=== PATIENT | female | born 1940 | race African-American/Black ===

== ENCOUNTER 2019-05-26 10:57 | Inpatient (IN) | payer MEDICARE, MEDICAID ==
--- NOTE | 2019-05-26 11:33 | RAD ---
XR Chest 1 View Portable History: Syncope Comparison: Radiograph May 21, 2013 Findings: Heart size is enlarged. Mild tortuosity of the aorta. Old right distal clavicular fracture. No acute osseous abnormality. No focal airspace consolidation, pneumothorax, or effusion. Impression: Chronic findings. No acute intrathoracic abnormality.
[2019-05-26 11:40] LABS: #Lymphocytes 1.2 thou/uL (1.20-3.40); #Monocytes 0.7 thou/uL (0.11-0.59); #Neutrophils 6.8 thou/uL (1.40-6.50); %Basophils 0.2 % (0.0-1.0); %Eosinophils 0.2 % (0.0-10.0); %Lymphocytes 13.3 % (21.0-51.0); %Neutrophils 78.3 % (42.0-75.0); Hemoglobin 10.8 g/dL (12.0-16.0); Mean Corpuscular HGB CONC 31.3 g/dL (32.0-36.0); Mean Corpuscular Hemoglobin 23.7 pg (27.0-31.0); Mean Corpuscular Volume 75.7 fL (78.0-98.0); Mean Platelet Volume 8.8 fL (7.4-10.4); Platelet Count 318 thou/uL (130-400); RBC Distribution Width 13.4 % (11.5-14.5); Red Blood Cell (RBC) Count 4.57 mill/uL (4.20-5.40); White Blood Cell (WBC) Count 8.7 thou/uL (4.8-10.8)
--- NOTE | 2019-05-26 11:45 | CT ---
Head CT without contrast 05/26/2019: COMPARISON: 06/07/2012 HISTORY: Syncope TECHNIQUE: Axial CT imaging at 5 mm intervals from vertex through skull base without contrast FINDINGS: The imaged paranasal sinuses and mastoid air cells are well aerated. There is atherosclerot ic calcification of the distal vertebral arteries, cavernous carotid arteries, and basilar artery. There is encephalomalacia within the left frontal and parietal region consistent with prior left MCA infarction. Stable cerebral volume loss with associated prominence of the CSF containing spaces. No intracranial hemorrhage, midline shift, or mass effect. IMPRESSION: Stable head CT. No intracranial hemorrhage.
[2019-05-26 12:03] LABS: ALT (SGPT) 18 U/L (8-55); AST (SGOT) 36 U/L (5-34); Albumin 3.2 g/dL (3.4-4.8); Alkaline Phosphatase 77 U/L (40-150); Anion Gap 14 mmol/L (10-20); BUN (Urea Nitrogen) 7 mg/dL (9.8-20.1); Bilirubin, Total 0.8 mg/dL (0.2-1.2); Calc. Creatinine Clearance 0 mL/min (70-130); Calcium 9.5 mg/dL (7.8-10.44); Carbon Dioxide 27 mmol/L (23-31); Chloride 100 mmol/L (98-107); Estimated GFR-MDRD 65; Globulin 4.8 g/dL (2.4-3.5); Glucose 109 mg/dL (83-110); Potassium 3.5 mmol/L (3.5-5.1); Sodium 137 mmol/L (136-145)
[2019-05-26 12:09] LABS: Bacteria/HPF 4+ HPF (None Seen); Bilirubin Negative (Negative); Blood, Urine Trace (Negative); Clarity Turbid (Clear); Glucose, Urine (Dipstick) Normal (Negative); Leukocyte 250 Leu/uL (Negative); Nitrite Negative (Negative); Protein, Urine (Dipstick) 50 mg/dL (Neg-Trace); Squamous Epithelial 0-3 HPF (0-3); Urobilinogen 6 mg/dL (Less than 2); WBC/HPF Greater than 50 HPF (0-3)
[2019-05-26] MEDS ORDERED: cefTRIAXone\\ROCEPHIN 1 GM VIAL ONE (12:26)
[2019-05-26 12:31] LABS: CKMB 14.3 ng/mL (0-6.6)
[2019-05-26 15:47] LABS: Troponin I 0.224 ng/mL (< 0.028)
[2019-05-26] MEDS ORDERED: Nitroglycerin 0.4 MG TAB (25 Tab Bottle) SL PRN (17:59)
[2019-05-26] MEDS ORDERED: Ondansetron ODT 4 MG TAB PO PRN (17:59)
[2019-05-26] MEDS ORDERED: Bisacodyl 5 MG TAB PO PRN (17:59)
[2019-05-26] MEDS ORDERED: Acetaminophen 500 MG TAB PO PRN (17:59)
[2019-05-26] MEDS ORDERED: Ondansetron PF 4 MG/2 ML Vial IVP PRN (17:59)
--- NOTE | 2019-05-26 19:43 | ULT ---
EXAM: BILATERAL CAROTID DUPLEX ULTRASOUND INCLUDING COLOR AND SPECTRAL DOPPLER IMAGIN05/26/19 HISTORY: Syncope. There is some visual plaque and intimal thickening noted bilaterally involving the CCAs and ICAs. PSV right ICA 32 cm/s. EDV 11 cm/s. ICA/CCA ratio 0.5. PSV left ICA 45 cm/s. EDV 11 cm/s. ICA/CCA ratio 0.6. Vertebral flow is antegrade. IMPRESSION: Bilateral intimal thickening and plaque evidence for bilateral carotid artery vascular disease. No he modynamically significant stenosis. POS: MAGGIE
[2019-05-26] MEDS: Pravastatin Sodium 20 MG TAB PO SCH (20:25)
[2019-05-26] MEDS ORDERED: Apixaban 2.5 MG TAB PO SCH (21:00)
[2019-05-27] MEDS: cefTRIAXone\\ROCEPHIN 2 GM in Sodium Chloride 0.9% 100 ML IVPB SCH (00:37)
[2019-05-27 05:31] LABS: #Eosinphils 0.1 thou/uL (0.0-0.7); #Lymphocytes 1.1 thou/uL (1.20-3.40); #Monocytes 0.5 thou/uL (0.11-0.59); #Neutrophils 3.3 thou/uL (1.40-6.50); %Basophils 0.2 % (0.0-1.0); %Eosinophils 1.2 % (0.0-10.0); %Lymphocytes 23.1 % (21.0-51.0); %Monocytes 9.1 % (0.0-10.0); %Neutrophils 66.4 % (42.0-75.0); Hemoglobin 9.6 g/dL (12.0-16.0); Mean Corpuscular HGB CONC 31.5 g/dL (32.0-36.0); Mean Corpuscular Hemoglobin 23.7 pg (27.0-31.0); Mean Corpuscular Volume 75.2 fL (78.0-98.0); Mean Platelet Volume 9.6 fL (7.4-10.4); Platelet Count 293 thou/uL (130-400); RBC Distribution Width 13.7 % (11.5-14.5); Red Blood Cell (RBC) Count 4.07 mill/uL (4.20-5.40); White Blood Cell (WBC) Count 4.9 thou/uL (4.8-10.8)
[2019-05-27 05:51] LABS: ALT (SGPT) 13 U/L (8-55); AST (SGOT) 24 U/L (5-34); Albumin 2.6 g/dL (3.4-4.8); Alkaline Phosphatase 62 U/L (40-150); Anion Gap 12 mmol/L (10-20); BUN (Urea Nitrogen) 10 mg/dL (9.8-20.1); Bilirubin, Total 0.3 mg/dL (0.2-1.2); Calc. Creatinine Clearance 61 mL/min (70-130); Calcium 8.6 mg/dL (7.8-10.44); Carbon Dioxide 26 mmol/L (23-31); Chloride 102 mmol/L (98-107); Estimated GFR-MDRD 78; Globulin 4.1 g/dL (2.4-3.5); Glucose 100 mg/dL (83-110); Protein, Total 6.7 g/dL (6.0-8.3); Sodium 137 mmol/L (136-145)
[2019-05-27 06:05] LABS: Free T4 (Free Thyroxine) 0.98 ng/dL (0.70-1.48); Thyroid Stimulating Hormone 1.4276 uIU/mL (0.35-4.94)
[2019-05-27] MEDS ORDERED: Potassium Chloride 40 MEQ in Premix Bag 1 BAG IVPB SCH ×2 (07:15→19:00)
[2019-05-27 07:37] LABS: Actual Bicarbonate (HCO3a) 23.1 mEq/L (22-28); Analyzer IN Cardio OR; Base Excess (BEa) -1.4 mEq/L (-2.0 to +3.0); CO2 Tension 38.1 mmHg (35.0-45.0); Calcium, Ionized 1.09 mmol/L (1.12-1.30); O2 Tension (PaO2) 101.2 mmHg (> 70.0); Potassium - ABG Lab 3.55 mmol/L (3.70-5.30)
[2019-05-27 07:38] LABS: ALV-art Gradient 0.905 (0-20); Puncture Site LB
[2019-05-27] MEDS ORDERED: Magnesium Sulfate 2 GM in Sodium Chloride 0.9% 100 ML IVPB SCH (07:45)
[2019-05-27] MEDS ORDERED: Magnesium 2 GM/50 ML 2 GM in Premix Bag 1 BAG IVPB SCH (07:45)
[2019-05-27 07:49] LABS: ALT (SGPT) 21 U/L (8-55); AST (SGOT) 45 U/L (5-34); Albumin 2.3 g/dL (3.4-4.8); Alkaline Phosphatase 61 U/L (40-150); Anion Gap 13 mmol/L (10-20); BUN (Urea Nitrogen) 10 mg/dL (9.8-20.1); Bilirubin, Total 0.3 mg/dL (0.2-1.2); Calc. Creatinine Clearance 57 mL/min (70-130); Calcium 8.5 mg/dL (7.8-10.44); Carbon Dioxide 22 mmol/L (23-31); Chloride 105 mmol/L (98-107); Estimated GFR-MDRD 72; Globulin 3.5 g/dL (2.4-3.5); Glucose 123 mg/dL (83-110); Phosphorus 3.5 mg/dL (2.3-4.7); Potassium 3.1 mmol/L (3.5-5.1); Protein, Total 5.8 g/dL (6.0-8.3); Sodium 137 mmol/L (136-145)
[2019-05-27] MEDS ORDERED: Diltiazem 125 MG in Sodium Chloride 0.9% 100 ML IVPB SCH (08:00)
--- NOTE | 2019-05-27 08:00 | PDOC.EVN ---
Event Note - Event Note Event Note: Called to a code blue for Ms. Finney at ~0630. She was admitted for syncope. Upon entering the room a backboard was being placed and compressions started. She underwent several rounds of CPR, which included two rounds of epi, two shocks, and one amp of bicarb, followed by ROSC. We obtained a stat ABG and stat labs. Pt was oxygenating and ventilation fine and obtained rosc before requiring intubation. Labs showed a low potassium, which we replaced. EKG showed a RBBB, and the one from admission showed t wave inversions and pt had elevated troponins. After transfer to the ICU we started her on ther lovenox, consulted pulm and cardiology. Once reaching the ICU, recheck on vitals showed a heart rate in the 150s and bp 70/40 with map of 50s, saturating well on a face mask. PCP notified.
--- NOTE | 2019-05-27 08:02 | RAD ---
EXAM: Portable chest PROVIDED CLINICAL HISTORY: Shortness of breath COMPARISON: 05/26/2019 FINDINGS: Cardiac and mediastinal silhouette is unchanged in appearance. Increased density is seen at the left lung apex suggesting developing pneumonia versus overlying artifact. Blunting of left costophrenic angle may reflect pleural fluid. No evidence for pneumothorax. IMPRESSION: Question left apical airspace disease. Correlate for pneumonia. Follow-up PA and lateral views of the chest are recommended.
[2019-05-27] MEDS ORDERED: Fentanyl 100 MCG/2 ML VIAL ONE (08:06)
[2019-05-27 08:10] LABS: CKMB 5.2 ng/mL (0-6.6)
[2019-05-27] MEDS ORDERED: Sodium Bicarb 50 MEQ/50 ML Abboject 8.4% SYRINGE ONE (08:21)
[2019-05-27] MEDS ORDERED: Calcium Chloride 1 GM/10 ML Abboject SYRINGE ONE (08:21)
[2019-05-27] MEDS ORDERED: EPINEPHrine 1 MG/10 ML Abboject SYRINGE ONE (08:21)
[2019-05-27] MEDS ORDERED: Amiodarone 150 MG in Dextrose 5% in Water 100 ML IVPB SCH (08:30)
[2019-05-27] MEDS: Amiodarone 450 MG in Dextrose 5% in Water 250 ML IVPB SCH (08:59)
[2019-05-27] MEDS ORDERED: Thiamine 100 MG TAB PO SCH (09:00)
[2019-05-27] MEDS ORDERED: Potassium Chloride 10 MEQ TAB PO SCH (09:00)
[2019-05-27] MEDS ORDERED: Folic Acid 1 MG TAB PO SCH (09:00)
[2019-05-27] MEDS ORDERED: Furosemide 40 MG TAB PO SCH (09:00)
[2019-05-27] MEDS: Enoxaparin Sodium 80 MG/0.8 ML SYRINGE SC SCH ×2 (09:04→21:03)
[2019-05-27 09:07] LABS: #Eosinphils 0.1 thou/uL (0.0-0.7); #Monocytes 0.6 thou/uL (0.11-0.59); #Neutrophils 13.7 thou/uL (1.40-6.50); %Basophils 0.1 % (0.0-1.0); %Eosinophils 0.4 % (0.0-10.0); %Lymphocytes 12.5 % (21.0-51.0); %Monocytes 3.4 % (0.0-10.0); %Neutrophils 83.7 % (42.0-75.0); Hemoglobin 9.5 g/dL (12.0-16.0); Mean Corpuscular HGB CONC 30.2 g/dL (32.0-36.0); Mean Corpuscular Hemoglobin 23.5 pg (27.0-31.0); Mean Corpuscular Volume 77.6 fL (78.0-98.0); Mean Platelet Volume 8.9 fL (7.4-10.4); Platelet Count 256 thou/uL (130-400); RBC Distribution Width 13.5 % (11.5-14.5); Red Blood Cell (RBC) Count 4.06 mill/uL (4.20-5.40); White Blood Cell (WBC) Count 16.4 thou/uL (4.8-10.8)
[2019-05-27] MEDS ORDERED: Norepinephrine 8 MG in Sodium Chloride 0.9% 250 ML 250 ML IVPB PRN (09:46)
[2019-05-27] MEDS ORDERED: Fentanyl 100 MCG/2 ML VIAL SLOW IVP SCH (10:00)
[2019-05-27] MEDS ORDERED: Enoxaparin Sodium 80 MG/0.8 ML SYRINGE SC SCH (10:00)
--- NOTE | 2019-05-27 10:22 | PRG ---
DATE OF SERVICE: 05/27/2019 HISTORY OF PRESENT STAY: I was notified by [place] [facility] and Resident Team that the patient coded on the floor with tachyarrhythmia, had several rounds of chest compressions, epinephrine, and returned from [facility] into tachyarrhythmia. Dr. Church evaluated the patient, felt like some of this was related to atrial fibrillation with RVR. Some elements were consistent with V-tach. The patient was initiated on Cardizem and then had further synchronized shock that did not successfully break the patient's rhythm. Started on the amiodarone with decreased rate down to 120s. The patient was transferred to the ICU. Did have a bump in white blood cell count following the stress event. Troponin actually trended down from yesterday indeterminant last of 0.17. Potassium found to be low pending replacement currently. Magnesium was 2.0. Thyroid studies normal. Did have family conversation with multiple family members including a primary caregiver of son-in-law and power of director furniture, the patient's son. He stated that she should be full code at this point in time. Verbalized understanding that the patient's prognosis is poor. The patient is breathing on own with nonrebreather currently. Does have extremely low blood pressure, last documented of 62/45. Confirmed with the patient's family that Eliquis was for strokes not for atrial fibrillation. The patient has not seen a pencil maker in multiple years since her prior stroke evaluations back in 2011. In reviewing this morning's chest x-ray post code, apical airspace, which may be early aspiration pneumonia during a code event versus volume overload. The patient received two 3 L of normal saline during code. Traditionally on Lasix and potassium chloride replacement outpatient. Oxygen saturation currently 100% on nonrebreather and 16 respirations. Blood cultures currently negative. Urine culture with gram negative rods, identification susceptibilities are pending. Carotid Dopplers did come back with no severe stenosis, but disease present. Echo has not been performed yet. PHYSICAL EXAMINATION: GENERAL: The patient is not fully responding by the eyes open. Able to move left arm. Right arm is at baseline, right hemiparesis. Nonrebreather in place. HEENT: Cataracts present, but pupils responding to light equally. HEART: Tachycardia. No murmurs auscultated. LUNGS: Coarse breath sounds bilaterally. ABDOMEN: Soft and nontender. EXTREMITIES: Lower extremities without cyanosis or edema. Unable to assess orientation. ASSESSMENT AND PLAN: Status post code episode for tachyarrhythmia, likely secondary to sepsis from UTI. Following Cardiology's recommendations, currently placed on amiodarone drip. Eliquis was discontinued. Currently, on therapeutic Lovenox. Continued on Rocephin at this point in time. We will seek a Critical Care's considerations for further antibiotic changes to broad-spectrum. During family discussion, they still currently wish the patient to be full code. We will continue to have discussions as the patient's condition either deteriorates or stabilizes. Prognosis is grim. Job ID: [id number]
[2019-05-27 15:16] LABS: Potassium 3.4 mmol/L (3.5-5.1)
--- NOTE | 2019-05-27 15:16 | CON ---
DATE OF CONSULTATION: 05/27/2019 REASON FOR CONSULTATION: Syncopal episode, atrial fibrillation, cardiac arrest, and hypotension. HISTORY OF PRESENT ILLNESS: Ms. Finney is a very pleasant 79-year-old female, who was brought to the hospital yesterday with a syncopal episode. The patient was admitted for observation and she was noted to have a decubitus ulcer. She was started on antibiotics. The patient developed atrial fibrillation with a rapid ventricular response and rapidly deteriorated. From the reports I am getting, she also had ventricular fibrillation which required defibrillation. The patient was moved to the intensive care unit, where she had a heart rate of 160, atrial fibrillation with a blood pressure of 70 systolic to 60 systolic. PAST MEDICAL HISTORY: 1. Previous stroke. 2. The patient is on Eliquis for unknown reason, suspect may have been atrial fibrillation. 3. As mentioned, she was found to have a decubitus ulcer on this occasion. REVIEW OF SYSTEMS: Not obtainable. The patient has a previous stroke, and is unable to verbalize adequately in terms of any review of systems. ALLERGIES: TO LISINOPRIL. SOCIAL HISTORY: She has a family member with her, we asked to go out to the waiting room because we had to cardiovert the patient as I outlined below. PHYSICAL EXAMINATION: GENERAL: This is a critically ill-appearing patient. HEENT: Blood pressure is initially in the 60s, systolic. Pulse is 160. HEENT: Eyes, sclerae are nonicteric. Mouth, mucous membranes are moist. NECK: Supple. LUNGS: Extremely tachycardic. I do not appreciate a murmur, rub, or gallop. LUNGS: Clear anteriorly and laterally, but taking shallow breaths. ABDOMEN: Soft and nontender. EXTREMITIES: No edema. NEUROLOGIC: She has right-sided loss of function in the right upper extremity. The patient also has expressive aphasia. DIAGNOSTIC DATA: EKG did reveal atrial fibrillation with a very rapid ventricular response. Previous EKG showed some T-wave changes, probably ischemia. ASSESSMENT: 1. Atrial fibrillation with rapid ventricular response with hypotension. 2. Cardiac arrest. By report, she had ventricular fibrillation as well. There certainly are some episodes here of torsade and actually looking at the strip, there is ventricular fibrillation, which was cardioverted. 3. Hypokalemia. 4. Previous stroke. PLAN: 1. She is given one dose of Cardizem. Initially, we were going to give 10 mg and 5 mg. Her rate did not come down and her blood pressure was still very low, so she only got 5 mg. 2. The patient was cardioverted. We gave 200 joules of direct current energy in view of the hypotension, she did convert to sinus rhythm for less than a minute, then back in atrial fibrillation with a rapid rate. 3. We started intravenous amiodarone, this helped controlling the rate. Her rate is now 120 instead of 160. 4. She is receiving fluid. 5. Pulmonary will be following as well. 6. Replace potassium. 7. Prognosis is guarded. I will just further discuss with the family members. Job ID: [id number]
[2019-05-27] MEDS: Pravastatin Sodium 20 MG TAB PO SCH (21:02)
[2019-05-27] MEDS: Pantoprazole 40 MG VIAL IVP SCH (21:03)
[2019-05-28] MEDS: cefTRIAXone\\ROCEPHIN 2 GM in Sodium Chloride 0.9% 100 ML IVPB SCH ×2 (00:09→23:44)
--- NOTE | 2019-05-28 02:13 | CON ---
DATE OF CONSULTATION: 05/27/2019 HISTORY OF PRESENT ILLNESS: Angy Finney is a 79-year-old female who had a ventricular tachycardia arrest this morning, requiring cardioversion. She was successfully cardioverted without intubation. She had been admitted for syncope. She was in rapid atrial fibrillation after she coded and was cardioverted out of atrial fibrillation and went back into atrial fibrillation. PAST MEDICAL HISTORY: Remarkable for stroke in the past. Reviewing old records , it does not appear that she has been in the hospital since 2012. At that time, she was admitted with angioedema. PAST MEDICAL HISTORY: Includes hypertension, lipid disorder, CVA and a seizure disorder. FAMILY HISTORY: Negative for lung disease in early age. PAST SURGICAL HISTORY: Remarkable for cholecystectomy. SOCIAL HISTORY: She is a nonsmoker, nondrinker, nondrug user. ALLERGIES: NO DRUG ALLERGIES. REVIEW OF SYSTEMS: Ten points review of systems completed is negative. PHYSICAL EXAMINATION: GENERAL: Angy Finney is a 79-year-old female VITAL SIGNS: Blood pressure is 143/66, heart rate 83, respiratory rate is 18, oximetry is 100%. HEENT: Pupils are equal. Sclerae are anicteric. NECK: Supple. LUNGS: Clear. HEART: Regular rhythm, rapid rate. ABDOMEN: Soft and nontender. EXTREMITIES: Without clubbing, cyanosis, or edema. IMPRESSION: 1. Atrial fibrillation. 2. Status post ventricular tachycardia arrest. 3. Syncope, likely related to ventricular tachycardia that spontaneously converted. 4. Rapid atrial fibrillation. 5. History of cerebrovascular accident. 6. Hypertension. 7. History of lipid disorder. 8. We will follow the other physicians. She is doing well protecting her airway at this time and when evaluated by me, she had no respiratory distress. Blood gas this morning showed a pH of 7.4, CO2 is 38, and pO2 of 101. TIME SPENT WITH PATIENT: This is a 70 minute consult, with greater than 50% of time spent on the unit coordinating care. Job ID: [id number] MTDD
[2019-05-28] MEDS: Amiodarone 450 MG in Dextrose 5% in Water 250 ML IVPB SCH ×2 (04:57→19:35)
[2019-05-28 04:58] LABS: #Lymphocytes 1.5 thou/uL (1.20-3.40); #Monocytes 0.5 thou/uL (0.11-0.59); #Neutrophils 4.4 thou/uL (1.40-6.50); %Basophils 0.4 % (0.0-1.0); %Eosinophils 0.5 % (0.0-10.0); %Lymphocytes 22.5 % (21.0-51.0); %Monocytes 7.4 % (0.0-10.0); %Neutrophils 69.2 % (42.0-75.0); Hemoglobin 8.7 g/dL (12.0-16.0); Mean Corpuscular HGB CONC 31.1 g/dL (32.0-36.0); Mean Corpuscular Hemoglobin 23.9 pg (27.0-31.0); Mean Corpuscular Volume 76.9 fL (78.0-98.0); Mean Platelet Volume 9.5 fL (7.4-10.4); Platelet Count 287 thou/uL (130-400); RBC Distribution Width 13.7 % (11.5-14.5); Red Blood Cell (RBC) Count 3.65 mill/uL (4.20-5.40); White Blood Cell (WBC) Count 6.4 thou/uL (4.8-10.8)
[2019-05-28 05:16] LABS: ALT (SGPT) 19 U/L (8-55); AST (SGOT) 36 U/L (5-34); Albumin 2.4 g/dL (3.4-4.8); Alkaline Phosphatase 58 U/L (40-150); Anion Gap 12 mmol/L (10-20); BUN (Urea Nitrogen) 10 mg/dL (9.8-20.1); Bilirubin, Total 0.2 mg/dL (0.2-1.2); Calc. Creatinine Clearance 56 mL/min (70-130); Calcium 8.5 mg/dL (7.8-10.44); Carbon Dioxide 23 mmol/L (23-31); Chloride 106 mmol/L (98-107); Estimated GFR-MDRD 71; Globulin 3.8 g/dL (2.4-3.5); Glucose 97 mg/dL (83-110); Potassium 3.6 mmol/L (3.5-5.1); Protein, Total 6.2 g/dL (6.0-8.3); Sodium 137 mmol/L (136-145)
[2019-05-28] MEDS ORDERED: Potassium Chloride 40 MEQ in Premix Bag 1 BAG IVPB SCH (08:45)
--- NOTE | 2019-05-28 09:04 | PRG ---
DATE OF SERVICE: 05/28/2019 SUBJECTIVE: Ms. Finney looks much better today. She is much more alert. She is oriented x1. She does not know where she is. She thinks she is in home. She does not know the year. OBJECTIVE: VITAL SIGNS: Her blood pressure is 120 systolic, which is markedly improved. She is off Levophed. No chest pain. LUNGS: Clear. CARDIAC: Normal S1 and normal S2. ABDOMEN: Soft and nontender. EXTREMITIES: There is no edema. She has good femoral pulses bilaterally. She has a venous central line in the right femoral vein. LABORATORY DATA: Echocardiogram showed that she does have a previous infarct. The mid and distal anterior wall are akinetic. The mid and distal septum are akinetic. Inferior wall is akinetic. Ejection fraction 30% to 35%. ASSESSMENT: 1. Recurrent cardiac arrest with torsades and ventricular fibrillation. 2. Probably multivessel coronary artery disease. 3. Dementia. 4. Previous stroke. 5. The patient is able to follow directions, but as mentioned, does not know where she is. PLAN: 1. Continue amiodarone. 2. Continue to replete potassium. 3. Eventually consider cardiac catheterization, although would not be a surgical candidate in all likelihood with her previous stroke and other problems. Long-term prognosis is guarded in this very pleasant patient. We will discuss with the family. 4. Increase statin intensity. 5. She has also iron deficient anemia with low ferritin and iron. We will replete iron. Job ID: [id number]
[2019-05-28] MEDS: Enoxaparin Sodium 80 MG/0.8 ML SYRINGE SC SCH ×2 (09:20→20:10)
[2019-05-28] MEDS: Pantoprazole 40 MG VIAL IVP SCH ×2 (09:56→20:09)
[2019-05-28] MEDS: Iron, Sodium Ferric Gluconate 250 MG in Sodium Chloride 0.9% 100 ML IVPB SCH ×2 (09:57→20:10)
[2019-05-28] MEDS ORDERED: Amiodarone 150 MG/3 ML VIAL ONE (18:00)
--- NOTE | 2019-05-28 19:09 | PRG ---
DATE OF SERVICE: 05/28/2019 SUBJECTIVE: Ms. Angy Finney has had no further dysrhythmias. OBJECTIVE: VITAL SIGNS: Blood pressure 129/86, heart rate 88, respiratory rate 24. Intake and outputs, positive 4347. LUNGS: Clear. HEART: Regular rhythm, S1 and S2 are normal. ABDOMEN: Soft. EXTREMITIES: Without edema. LABORATORY DATA: White count 6.4, hemoglobin 8.7, platelets 287. Electrolytes are normal. IMPRESSION: Status post ventricular tachycardia arrest, clinically stable. Echocardiogram shows an ejection fraction of 30% to 35%. We will continue supportive care in the critical care unit. Cardiology is following. Job ID: [id number]
[2019-05-28] MEDS: Atorvastatin Calcium 40 MG TAB PO SCH (20:10)
--- NOTE | 2019-05-28 21:34 | HP ---
PRIMARY CARE PHYSICIAN: Apolinar Molina DO CHIEF COMPLAINT: Syncopal episode. HISTORY OF PRESENT ILLNESS: Family members witnessed a syncopal episode, brought the patient to the emergency department. She has had a longstanding history of multiple strokes with right-sided hemiplegia and some vascular dementia. The patient's speech and prior deficits appeared at baseline per family following the syncopal episode. The patient has a longstanding history of alcohol abuse. Currently off ETOH but has replaced it with sodas, has not had a cardiac workup in [facility] for several years, noticed to have elevated troponin in the emergency department, admitted for likely UTI, given Rocephin and did trend troponins. The patient is talking at bedside. No family is at bedside. Unable to make sense of what the patient is saying, given her baseline dementia. Unable to review review of symptoms or further HPI. At the time of exam, vital signs on admission to the floor, temperature of 99.1, pulse of 95, respiratory rate of 16 , oxygen saturation 100% on room air, blood pressure of 131/75. Laboratory work wbc 8.7, hemoglobin of 10.8, platelet count of 318. Sodium 137, potassium of 3.5, creatinine of 1.0, glucose 109, AST of 36, ALT of 17, albumin of 3.2. Troponins x3 0.15, 0.22, and 0.24. BNP of 572. Urinalysis, specific gravity of 1.01. Positive leukocyte esterase, positive blood, positive wbc's, no squamous cells. Chest x-ray without acute cardiopulmonary events. Brain CT, no intracranial hemorrhage, encephalomalacia present consistent with prior left-sided MCA infarct. MEDICATIONS: The patient's home medications listed as; 1. Pravastatin 20 mg. 2. Potassium chloride 10 mEq daily. 3. Hydrochlorothiazide 25 daily. 4. Lasix 40 mg daily. 5. Eliquis 2.5 mg p.o. b.i.d. PAST MEDICAL/SOCIAL/SURGICAL HISTORY: Cholecystectomy, dementia, history of trigeminal neuralgia, history of alcohol abuse, hypertension. FAMILY HISTORY: Type 2 diabetes, hypertension with sister. SOCIAL HISTORY: The patient currently living at home with home health being ordered this past month. ALLERGIES: INCLUDE LISINOPRIL, PRIOR REPORTS OF ANGIOEDEMA AND PROCHLORPERAZINE. PHYSICAL EXAMINATION: GENERAL: The patient is alert, but not making any sense, repeats herself. The facial droop is reported at baseline per emergency room notes. HEENT: Otherwise, head is normocephalic, atraumatic. Oral mucosa is moist, extremely poor dentition present. HEART: Regular rate, however, has several PVCs during exam, otherwise normal rhythm. LUNGS: Clear to auscultation bilaterally. No rubs or wheezes. ABDOMEN: Soft, nontender. Positive bowel sounds throughout. EXTREMITIES: Lower extremities without cyanosis or edema. Right upper extremity, unable to produce recruiter account manager or to respond to command against gravity. Left arm and lower extremity moving on command, squeezes and senior net software developer well but still unable to fully understand the patient with some underlying baseline speech slurring, which is per ER report at baseline. ASSESSMENT AND PLAN: Syncopal episode, urinary tract infection, baseline dementia, and right hemiparesis with speech slur and facial droop, deconditioning, decubitus bedsore to buttock, caused by pressure, present on admission. Consulting wound care. Continuing Rocephin from admission. Trending troponins. Continuing patient's Eliquis, statin. Covering Cardiology for opinion for any additional medication changes given age and mental condition, likely not a good candidate for any invasive measures. We will consult Physical Therapy to assess the patient's mobility and ability to return home on home health. Given the history of alcohol abuse, we will check thiamine, folic acid, and thyroid studies. In case the patient is , we will reassess in the morning or during the daytime tomorrow. See if the patient's family is at bedside to reaffirm that the patient's deficits are at baseline. Follow up on echo and carotid artery ultrasound for any critical values. We will continue Lasix given patient's elevated BNP and echo for status of any systolic or diastolic dysfunction. We will trend troponin through the morning, remains indeterminate, but stable, likely elevated secondary to stress and strain of urinary tract infection. Job ID: [id number] [facility]
--- NOTE | 2019-05-28 22:14 | PRG ---
DATE OF SERVICE: 05/28/2019 SUBJECTIVE: Given that the patient's blood pressure has rebounded well, no pressors yesterday and heart rate has stabilized, the patient's mentation has much improved this morning. The patient was tolerating diet, verbalized understanding giving her current condition and no acute complaints at bedside. OBJECTIVE: VITAL SIGNS: Heart rate of 97, blood pressure of 129/81, respiratory rate of 29, 95% on room air. GENERAL: The patient is alert and oriented to person and place. HEENT: Head is normocephalic and atraumatic. Pupils are equal, round, reactive, and accommodate to light. Poor dentition remains. Otherwise, oral mucosa is moist. NECK: Supple. HEART: At time of exam is regular rate and rhythm. Coarse breath sounds bilaterally. ABDOMEN: Soft, nontender. EXTREMITIES: Right upper extremity, nonmobile at baseline. Trace edema, lower extremities. LABORATORY DATA: Hemoglobin 8.7, MCV of 76, potassium of 3.6. Sodium of 137, creatinine of 0.9. Microbiology shows E coli, pansensitive except intermediate to Macrobid. ASSESSMENT AND PLAN: Status post cardiac arrest secondary to ventricular tachycardia arrhythmia, some underpinnings of atrial fibrillation on rhythm strips. However, the patient remains rate and rhythm controlled on amiodarone drip. Prior syncopal episode, likely secondary to rhythm changes. Echo shows systolic heart failure, most of this precipitated acutely by urinary tract infection secondary to Escherichia coli, treated with Rocephin. The patient's hypokalemia has been repleted this afternoon. The patient is started on iron for iron deficiency anemia by Cardiology to help support cardiac health. The patient remains in ICU at this point in time with supportive care. Decubitus ulcer is present and the patient is deconditioned. Job ID: [id number]
[2019-05-29 05:36] LABS: #Basophils 0.1 thou/uL (0.0-0.2); #Lymphocytes 1.5 thou/uL (1.20-3.40); #Monocytes 0.4 thou/uL (0.11-0.59); #Neutrophils 6.5 thou/uL (1.40-6.50); %Basophils 0.7 % (0.0-1.0); %Eosinophils 0.3 % (0.0-10.0); %Lymphocytes 17.7 % (21.0-51.0); %Monocytes 5.1 % (0.0-10.0); %Neutrophils 76.2 % (42.0-75.0); Mean Corpuscular HGB CONC 31.4 g/dL (32.0-36.0); Mean Corpuscular Volume 76.3 fL (78.0-98.0); Mean Platelet Volume 9.6 fL (7.4-10.4); Platelet Count 292 thou/uL (130-400); RBC Distribution Width 13.9 % (11.5-14.5); Red Blood Cell (RBC) Count 3.74 mill/uL (4.20-5.40); White Blood Cell (WBC) Count 8.5 thou/uL (4.8-10.8)
[2019-05-29 05:54] LABS: Anion Gap 9 mmol/L (10-20); BUN (Urea Nitrogen) 8 mg/dL (9.8-20.1); Calc. Creatinine Clearance 60 mL/min (70-130); Calcium 8.9 mg/dL (7.8-10.44); Carbon Dioxide 24 mmol/L (23-31); Chloride 106 mmol/L (98-107); Estimated GFR-MDRD 77; Glucose 101 mg/dL (83-110); Potassium 3.9 mmol/L (3.5-5.1); Sodium 135 mmol/L (136-145)
[2019-05-29] MEDS: Enoxaparin Sodium 80 MG/0.8 ML SYRINGE SC SCH ×2 (08:37→21:39)
[2019-05-29] MEDS: Pantoprazole 40 MG VIAL IVP SCH ×2 (08:37→21:39)
--- NOTE | 2019-05-29 09:04 | PRG ---
DATE OF SERVICE: 05/29/2019 SUBJECTIVE: The patient is feeling fine. She denies any chest pain, shortness of breath, or palpitations. Has little recollection of what happened over the weekend with her being coated. States that her appetite is good. She has not been out of bed much, but denies any pain at this time. Her speech is at her baseline. She continues to have right-sided hemiparesis from a past CVA. OBJECTIVE: VITAL SIGNS: Temperature 97.6, pulse of 95, respirations 30, blood pressure 135/95, and pulse ox 100% on room air. GENERAL: She is awake and alert. No acute distress. Speech is at her baseline. NECK: Supple. HEART: Regular rate and rhythm with ectopy. LUNGS: Clear anteriorly. ABDOMEN: Soft. EXTREMITIES: With no edema. Right-sided hemiparesis. NEUROLOGICAL: Back at her baseline. LABORATORY DATA: White blood cell count 8.5, hemoglobin and hematocrit are 9.0 and 28.6, and platelets of 292. Sodium 135, potassium 3.9, chloride 106, CO2 of 24, BUN and creatinine 8 and 0.86 with a serum glucose of 101. Liver enzymes were stable. Albumin from yesterday of 2.4. Urinalysis is abnormal. Urine culture is growing E coli sensitive to ceftriaxone. ASSESSMENT AND PLAN: This is a 79-year-old female with a history of right hemiparesis secondary to past cerebrovascular accident, admitted after syncopal episode and now found to have arrhythmias consistent with tachyarrhythmia, status post Code Blue for ventricular tachycardia, episodes of paroxysms of atrial fibrillation, now seems to be more stable on amiodarone drip. 1. Arrhythmia. Continue amiodarone per Cardiology. Further plans per them. 2. Syncope, likely secondary to arrhythmia. 3. Systolic heart failure, on echocardiogram. Continue appropriate management. 4. Urinary tract infection with Escherichia coli. We will continue IV Rocephin. 5. Hypokalemia, resolved with potassium repletion. Job ID: [id number]
--- NOTE | 2019-05-29 09:45 | PRG ---
DATE OF SERVICE: 05/29/2019 SUBJECTIVE: Ms. Finney has had no recurrence of her ventricular arrhythmias. OBJECTIVE: VITAL SIGNS: She is afebrile. Heart rate is 95, blood pressure 135/94, and oximetry is 100%. LUNGS: Clear. HEART: Regular rhythm. ABDOMEN: Soft. LABORATORY DATA: White count 8.5, hemoglobin 9, platelets 292. Sodium 135, potassium 3.9, chloride 106, bicarb 24, BUN 8, and creatinine 0.86. IMPRESSION: 1. Status post ventricular tachycardia arrest, not requiring intubation. 2. Rapid atrial fibrillation, status post cardioversion. Overall, she appears to be stable at this time. Job ID: [id number]
--- NOTE | 2019-05-29 09:47 | OP ---
DATE OF PROCEDURE: 05/27/2019 PROCEDURE PERFORMED: External cardioversion. INDICATION: Atrial fibrillation with a rapid rate, uncontrolled with severe hypotension. Blood pressure in the 60s, heart rate 160. The patient is hypotensive. She was given 25 mg of fentanyl only, then she got one dose of direct current energy synchronized that did convert her to sinus rhythm for less than a minute. She went back into atrial fibrillation with a rapid rate. ASSESSMENT: Cardioversion emergency initially successful, but then reverted back into atrial fibrillation. Job ID: [id number]
--- NOTE | 2019-05-29 13:00 | PQF ---
DATE: 05-29-19 ATTN: DR. BEAR SANCHEZ Please exercise your independent, professional judgment in responding to the clarification form. Clinical indicators are provided on the bottom of this form for your review Diagnosis: SEPSIS Present on Admission (POA): [x ] Yes [ ] No [ ] Unable to determine Coding guidelines require hospitals to identify whether a diagnosis was present on admission (POA) or not. To accurately assign the appropriate POA indicator, this information must be clearly documented within the medical record. CLINICAL INDICATORS - SIGNS / SYMPTOMS / LABS: PN 05-27-19 DR. SANCHEZ: S/P CODE EPISODE FOR TACHYARRHYTHMIA, LIKELY SECONDARY TO SEPSIS FROM UTI. WBC: 05-27-19: 16.4 TEMP: 05-26-19: 99.1 PULSE: 05-26-19: 107 RISK FACTORS: PN 05-27-19 DR. SANCHEZ: S/P CODE EPISODE FOR TACHYARRHYTHMIA, LIKELY SECONDARY TO SEPSIS FROM UTI. H&P: SYNCOPAL EPISODE, VASCULAR DEMENTIA, ALCOHOL ABUSE, HX TRIGEMINAL NEURALGIA, DECUBITUS BEDSORE TO BUTTOCK CAUSED BY PRESSURE, HTN TREATMENT: ER: ROCEPHIN IV (This form is maintained as a part of the permanent medical record) 2014 [employer] All Rights Reserved DEMOND [email or web address] Office: [phone] BRISA
[2019-05-29] MEDS: Amiodarone 450 MG in Dextrose 5% in Water 250 ML IVPB SCH (14:07)
--- NOTE | 2019-05-29 15:27 | EKG ---
Test Reason : Blood Pressure : / mmHG Vent. Rate : 091 BPM Atrial Rate : 091 BPM P-R Int : 112 ms QRS Dur : 092 ms QT Int : 450 ms P-R-T Axes : 047 027 109 degrees QTc Int : 553 ms Sinus rhythm with Premature supraventricular complexes with occasional Premature ventricular complexe s Prolonged QT Abnormal ECG When compared with ECG of 28-MAY-2019 10:31, (Unconfirmed) Premature ventricular complexes are now Present Premature supraventricular complexes are now Present Nonspecific T wave abnormality no longer evident in Inferior leads Confirmed by CIARA TRUJILLO, DR. Todd ([id number]) on 05/29/2019 3:27:18 PM Referred By: MONICA Confirmed By:DR. Perez URBINA MD
--- NOTE | 2019-05-29 15:28 | PDOC.PALCO ---
Palliative Care Consult - Consult Details Requesting Physician: Dr Mendoza Reason for Consult: goals of care, assistance with communication prognosis/ disease Family Members Present: none - Pertinent HPI At home patient had a witnessed syncopal episode by family and was taken to the emergency room for evaluation. Patient was admitted for further evaluation secondary to UTI, syncope. After admitted patient was evaluated by cardiology, pulmonary. After admission patient had a cardiac event that required resuscitation measures. - Pertinent PMH Dementia, trigeminal neuralgia, hypertension, alcohol abuse, CVA with right sided hemiplegia, systolic heart failure - Social History Smoking Status: Unknown if ever smoked Alcohol Use: daily Living Situation: with family/parents - Medications MAR Reviewed: Yes - Allergies Allergies/Adverse Reactions: Allergies Allergy/AdvReac Type Severity Reaction Status Date / Time lisinopril Allergy Severe Anaphylaxis Verified 05/26/19 15:37 prochlorperazine Allergy Verified 05/26/19 15:37 [From Compazine] - Subjective Patient awake, alert. Only oriented to self. Unable to recall events, the name of her son. ROS; All systems were negative on assessment - Objective Vital Signs: Vital Signs - Most Recent Temp Pulse Resp BP Pulse Ox 97.5 F L 98 16 105/72 100 05/29/19 12:00 05/29/19 08:53 05/27/19 04:00 05/29/19 08:53 05/29/19 08:00 Palliative Performance Scale: 30 - Physical Exam Constitutional: confusion HEENT: moist MMs, EOMI Deviation from normal: Poor dentition Respiratory: unlabored breathing Deviation from normal: mildly coarse breath sounds to upper, and more pronounced to right upper Cardiovascular: RRR, no significant murmur Deviation from normal: Unable to palpate pedal pulses, radial present and equal Gastrointestinal: soft, positive bowel sounds Deviation from normal: Confused, cheerful. Deviation from normal: wound to buttock fair turgor - Problem List (1) Palliative care encounter Code(s): Z51.5 - ENCOUNTER FOR PALLIATIVE CARE Current Visit: Yes Status: Acute (2) Physical deconditioning Code(s): R53.81 - OTHER MALAISE Current Visit: Yes Status: Acute Assessment: muscle wasting atrophy. (3) Dementia Code(s): F03.90 - UNSPECIFIED DEMENTIA WITHOUT BEHAVIORAL DISTURBANCE Current Visit: Yes Status: Acute Qualifiers: Dementia type: vascular dementia Dementia behavioral disturbance: without behavioral disturbance Qualified Code(s): F01.50 - Vascular dementia without behavioral disturbance - Plan/Recommendations Plan: Patient pleasently confused. Vitor Butler RNcareer portals teacher following patient and will follow up with family to establish a family meeting to discuss DNAR status , patient chronic disease processes and disease trajectory and discuss goals of care that are reflective of disease progression to promote optimal care of patient. [60] minutes spent on this encounter with >50% of the time in counseling and coordination of care. Thank you for this very appropriate consult.
--- NOTE | 2019-05-29 16:55 | PRG ---
DATE OF SERVICE: 05/29/2019 SUBJECTIVE: Ms. Finney is much more awake and alert today. She feels better. No chest pain or pressure. OBJECTIVE: VITAL SIGNS: Blood pressure 130/70 and pulse is 80. LUNGS: Clear. CARDIAC: Normal S1 and normal S2. The echocardiogram did show previous anterior infarct with ejection fraction 30% to 35%, inferior akinetic, mid and distal septum akinetic, mid and distal anterior wall akinetic, probably multivessel coronary artery disease. ASSESSMENT: 1. Atrial fibrillation, improved. 2. Ventricular fibrillation, recurrent events. 3. Previous infarcts. 4. Previous stroke. 5. The patient has decubitus ulcer. PLAN: 1. Transition to oral amiodarone. 2. Tentatively plan catheterization on Wednesday if the family wishes to have this done and they understand the significant amount of risk. 3. Okay with me to move to the intermediate care unit. Job ID: [id number]
[2019-05-29] MEDS: Atorvastatin Calcium 40 MG TAB PO SCH (21:42)
[2019-05-29] MEDS: Amiodarone 200 MG TAB PO SCH (21:42)
[2019-05-29] MEDS: cefTRIAXone\\ROCEPHIN 2 GM in Sodium Chloride 0.9% 100 ML IVPB SCH (23:32)
[2019-05-30] MEDS: Amiodarone 450 MG in Dextrose 5% in Water 250 ML IVPB SCH (07:18)
[2019-05-30] MEDS ORDERED: Aspirin 325 mg Enteric Coated Tablet PO SCH (09:00)
--- NOTE | 2019-05-30 09:32 | PRG ---
DATE OF SERVICE: 05/30/2019 SUBJECTIVE: The patient is feeling fine. She denies any chest pain. Denies shortness of breath. She has not had any kind of palpitations. Appetite is good. She has not been out of bed. OBJECTIVE: VITAL SIGNS: Temperature 98.3, pulse is 77, respirations 22 to 25, blood pressure 122/76, pulse ox is 99% to 100% on room air. GENERAL: She is awake and alert. Speech is clear. NECK: Supple. HEART: Regular rate and rhythm with rare ectopy. LUNGS: Clear anteriorly. ABDOMEN: Soft. EXTREMITIES: No edema. Right-sided hemiparesis is her baseline. LABORATORY DATA: Pending this morning. ASSESSMENT AND PLAN: 1. This is a 79-year-old female patient with a history of coronary artery disease, cerebrovascular accident with resultant chronic right hemiparesis, now admitted after syncopal episode and resultant ventricular tachycardia fibrillation arrest and rapid atrial fibrillation, status post cardioversion. She is back in normal sinus rhythm at this time and asymptomatic. Further plan per Dr. Church, for possible cardiac cath, if the patient and family wish to proceed. 2. Atrial fibrillation is resolved. 3. Previous infarcts with history of coronary artery disease. 4. Cardiomyopathy with decreased left ventricular ejection fraction. 5. Deconditioning. Plan Cardiology. Family and patient deciding on whether to proceed with cardiac catheterization tomorrow. We will initiate physical therapy and consult Case Management for likely [facility] facility placement upon discharge. 6. Urinary tract infection. We will continue antibiotics. Job ID: [id number]
[2019-05-30 09:48] LABS: #Eosinphils 0.1 thou/uL (0.0-0.7); #Lymphocytes 1.9 thou/uL (1.20-3.40); #Monocytes 0.4 thou/uL (0.11-0.59); #Neutrophils 4.4 thou/uL (1.40-6.50); %Basophils 0.2 % (0.0-1.0); %Eosinophils 0.8 % (0.0-10.0); %Lymphocytes 27.8 % (21.0-51.0); %Monocytes 5.8 % (0.0-10.0); %Neutrophils 65.3 % (42.0-75.0); Hemoglobin 8.7 g/dL (12.0-16.0); Mean Corpuscular HGB CONC 31.8 g/dL (32.0-36.0); Mean Corpuscular Hemoglobin 24.1 pg (27.0-31.0); Mean Corpuscular Volume 75.5 fL (78.0-98.0); Mean Platelet Volume 9.5 fL (7.4-10.4); Platelet Count 293 thou/uL (130-400); RBC Distribution Width 14.1 % (11.5-14.5); White Blood Cell (WBC) Count 6.8 thou/uL (4.8-10.8)
--- NOTE | 2019-05-30 09:52 | PDOC.PALPN ---
Palliative Progress Note - Subjective Awake, alert with memory recall impairment. Son at bedside. Began discussion in regards to goals of care and resuscitation status. Vitor Butler RNalcohol still operator also visited with patient and son. Son asked for clarification in regards to if patient would have a heart cath, or pacemaker. Vitor Butler has reached out to Dr Church to assist in communication relating to procedures for patient. ROS: Patient denies any complaints, no pertinent complainants at this time. - Objective Vital Signs: Vital Signs - Most Recent Temp Pulse Resp BP Pulse Ox 98.3 F 98 16 105/72 96 05/30/19 04:00 05/29/19 08:53 05/27/19 04:00 05/29/19 08:53 05/29/19 18:51 - Physical Exam Constitutional: confusion HEENT: moist MMs, EOMI Respiratory: unlabored breathing Cardiovascular: RRR Gastrointestinal: soft, non-tender, positive bowel sounds - Assessment (1) Palliative care encounter Code(s): Z51.5 - ENCOUNTER FOR PALLIATIVE CARE Current Visit: Yes Status: Acute (2) Physical deconditioning Code(s): R53.81 - OTHER MALAISE Current Visit: Yes Status: Acute (3) Dementia Code(s): F03.90 - UNSPECIFIED DEMENTIA WITHOUT BEHAVIORAL DISTURBANCE Current Visit: Yes Status: Acute Qualifiers: Dementia type: vascular dementia Dementia behavioral disturbance: without behavioral disturbance Qualified Code(s): F01.50 - Vascular dementia without behavioral disturbance - Plan Plan: *Attempt to assist with communication in regards to potential cardiac procedures and address the complex aspect of decision making with the son. *Discuss DNAR and OOHDNAR status with son after questions are answered/ clarification given in relation to pacemaker/heart cath Vitor Butler RN to continue to follow from Palliative Care [40] minutes spent on this encounter with >50% of the time in counseling and coordination of care.
[2019-05-30 10:02] LABS: Anion Gap 11 mmol/L (10-20); BUN (Urea Nitrogen) 9 mg/dL (9.8-20.1); Calc. Creatinine Clearance 50 mL/min (70-130); Calcium 8.7 mg/dL (7.8-10.44); Carbon Dioxide 22 mmol/L (23-31); Chloride 104 mmol/L (98-107); Estimated GFR-MDRD 61; Glucose 103 mg/dL (83-110); Potassium 3.6 mmol/L (3.5-5.1); Sodium 133 mmol/L (136-145)
[2019-05-30] MEDS: Enoxaparin Sodium 80 MG/0.8 ML SYRINGE SC SCH (10:13)
[2019-05-30] MEDS: Amiodarone 200 MG TAB PO SCH ×3 (10:14→20:47)
[2019-05-30] MEDS: Pantoprazole 40 MG VIAL IVP SCH ×2 (10:15→20:48)
[2019-05-30] MEDS ORDERED: Potassium Chloride 40 MEQ in Premix Bag 1 BAG IVPB SCH (13:45)
--- NOTE | 2019-05-30 14:21 | PRG ---
DATE OF SERVICE: 05/30/2019 SUBJECTIVE: Ms. Finney is awake and conversant. OBJECTIVE: VITAL SIGNS: Her blood pressure is 123/70, pulse 75 and it is sinus on the monitor. LUNGS: Clear. CARDIAC: Normal S1. Normal S2. ABDOMEN: Soft and nontender. EXTREMITIES: There is no edema. The patient is off the intravenous amiodarone. She is on oral amiodarone. EKG does show some QT prolongation and possible anterior ischemia. ASSESSMENT: 1. Depressed left ventricular function. 2. Status post cardiac arrest with successful resuscitation. 3. History of some dementia. 4. Hypokalemia. PLAN: 1. We will replete potassium. 2. On oral amiodarone. 3. Proceed to cardiac catheterization tomorrow if the family desires to have this done. We will explain the risks. The patient is at increased risk of complications due to multiple problems including some history of dementia, depressed left ventricular function, and status post cardiac arrest. Also, unclear whether she would be a candidate for a defibrillator any time soon. If she truly does have significant decubitus, I would need to heal first. She could be treated with the LifeVest and that is the family's request. 4. We will add low-dose carvedilol and add lisinopril as well as replete the potassium. ADDENDUM: I have found by looking at the chart additionally that she is allergic to lisinopril. Therefore, lisinopril WILL NOT be given. Job ID: [id number]
--- NOTE | 2019-05-30 15:42 | PRG ---
DATE OF SERVICE: 05/30/2019 SUBJECTIVE: Ms. Finney is afebrile. OBJECTIVE: VITAL SIGNS: Heart rate is 80, blood pressure 123/77, and respiratory rate 20s. LUNGS: Clear. HEART: Regular rhythm. ABDOMEN: Soft. LABORATORY DATA: White count 6.8, hemoglobin 8.7, and platelets 293. Electrolytes; sodium 133, potassium 3.6, chloride 104, bicarb 22, BUN 9, and creatinine 1.06. IMPRESSION: 1. Status post ventricular tachycardia. 2. Severe cardiomyopathy. 3. Status post syncope prior to admission, likely related to rhythm disturbance. PLAN: I am told that Dr. Church has planned meeting with family today. Other problems include previous stroke, previous myocardial infarctions, atrial fibrillation, and decubitus ulcers that was present on admission. Her prognosis just from a functional standpoint is quite poor. Job ID: [id number]
[2019-05-30] MEDS: Potassium Chloride 20 MEQ in Premix Bag 1 BAG IVPB SCH ×2 (16:12→17:01)
[2019-05-30] MEDS: Carvedilol 3.125 MG TAB PO SCH (16:13)
[2019-05-30] MEDS ORDERED: Communication Order-Pharmacy FS SCH (17:15)
--- NOTE | 2019-05-30 18:53 | EKG ---
Test Reason : Blood Pressure : / mmHG Vent. Rate : 078 BPM Atrial Rate : 078 BPM P-R Int : 140 ms QRS Dur : 090 ms QT Int : 450 ms P-R-T Axes : 056 064 120 degrees QTc Int : 513 ms Normal sinus rhythm with sinus arrhythmia Prolonged QT Abnormal ECG When compared with ECG of 29-MAY-2019 07:15, Premature ventricular complexes are no longer Present Premature supraventricular complexes are no longer Present Confirmed by CIARA TRUJILLO, SBrenda (4) on 05/30/2019 6:53:31 PM Referred By: MONICA Confirmed By:DR. Perez URBINA MD
[2019-05-30] MEDS: Atorvastatin Calcium 40 MG TAB PO SCH (20:47)
[2019-05-30] MEDS: cefTRIAXone\\ROCEPHIN 2 GM in Sodium Chloride 0.9% 100 ML IVPB SCH (23:13)
[2019-05-31] MEDS ORDERED: Sodium Chloride 0.9% 1,000 ML IV SCH ×2 (05:00→08:06)
[2019-05-31 05:47] LABS: Anion Gap 11 mmol/L (10-20); BUN (Urea Nitrogen) 8 mg/dL (9.8-20.1); Calc. Creatinine Clearance 56 mL/min (70-130); Calcium 8.6 mg/dL (7.8-10.44); Carbon Dioxide 22 mmol/L (23-31); Chloride 108 mmol/L (98-107); Estimated GFR-MDRD 69; Glucose 82 mg/dL (83-110); Potassium 3.6 mmol/L (3.5-5.1); Sodium 137 mmol/L (136-145)
[2019-05-31] MEDS ORDERED: Fentanyl 100 MCG/2 ML VIAL ONE (07:24)
[2019-05-31] MEDS ORDERED: Nitroglycerin 0.4 MG TAB (25 Tab Bottle) SL PRN (08:04)
[2019-05-31] MEDS ORDERED: Acetaminophen/Codeine 30-300mg Tablet PO PRN ×2 (08:04)
[2019-05-31] MEDS ORDERED: Sodium Chloride 0.9% 200 ML IV PRN (08:04)
--- NOTE | 2019-05-31 08:22 | PRG ---
DATE OF SERVICE: 05/30/2019 ADDENDUM: Ms. Finney as outlined in my previous note, is doing better today. I had a long discussion with the patient's sons. There are 2 sons in the waiting area. Discussed cardiac catheterization and possible angioplasty or stent implantation. Discussed risk of stroke, heart attack, iodine allergy, interference of blood supply to leg or kidney, stent thrombosis, stent restenosis. They understand she is a poor candidate for surgery. They understand her guarded prognosis and increased risks, regardless of therapy and they wished to proceed. This will be arranged for tomorrow. Job ID: [id number]
[2019-05-31] MEDS ORDERED: Potassium Chloride 40 MEQ in Premix Bag 1 BAG IVPB SCH (09:45)
--- NOTE | 2019-05-31 12:16 | CON ---
DATE OF CONSULTATION: 05/31/2019 HISTORY OF PRESENT ILLNESS: I am seeing Ms. Finney at our [facility] as an Electrophysiology senior treasury consultant on the telemetry floor. Her problems are; 1. Episode of torsade like ventricular arrest in the hospital via ACLS/defibrillation. 2. Paroxysmal atrial fibrillation, rapid ventricular rates. 3. Good response suppressing the above arrhythmias with amiodarone taper. 4. Newly found nonischemic cardiomyopathy, possible takotsubo syndrome. a. Left heart catheterization on 05/31/2019, demonstrates patent coronary arteries. b. 2D echo from 05/27/2019 shows LVEF 30% to 35%, with wall motion pattern consistent with takotsubo syndrome. c. LVEF 30% by left heart angiogram as well. 5. Cryptogenic stroke in 2013 with residual right hemiparesis. 6. Decubitus ulcer in the sacral area. 7. Hypokalemia in the setting of cardiac arrest. 8. Remote history of EtOH abuse. 9. History of dementia. 10. History of chronic anticoagulation. ALLERGIES: LISINOPRIL AND PROCHLORPERAZINE. MEDICATIONS: At home included; 1. Pravastatin. 2. Potassium. 3. Hydrochlorothiazide. 4. Lasix. 5. Eliquis 2.5 mg twice a day. The patient is also receiving; 1. Amiodarone tapering doses 200 mg twice a day. 2. Aspirin. 3. Coreg. 4. Lovenox. SUBJECTIVE: Ms. Finney was admitted on the 2nd after a syncopal spell. Initially, she was noted to have UTI. BNP was also elevated with positive white cell count and red blood cells in the urine. She was admitted and Rocephin was initiated. She was monitored on the floor and she was noted to have episodes of atrial fibrillation with rapid rates, but they were paroxysmal and return of a sinus rhythm is noted. She spontaneously developed an episode of torsade like ventricular arrhythmia, which could be deteriorated to ventricular fibrillation, amiodarone was initiated and at that time, the potassium was in the lower range of 3 and that was replaced, since no further arrhythmia episodes are seen. She continues on p.o. amiodarone taper, also maintain sinus rhythm. Currently, she is feeling well. No new symptoms are noted. She denies PND or orthopnea at this time. No chest pains. No fever, chills, or cough. She is recovering from heart catheterization procedure well. Rest of 12-point review of system otherwise unremarkable apart from the chronic right hemiparesis as noted above. PAST MEDICAL HISTORY: As above. Also, the patient has a trigeminal neurologia, hypertension, and dementia. PAST SURGICAL HISTORY: Significant for cholecystectomy. SOCIAL HISTORY: The patient lives at home with reasonable family support. Her son is living close by and family members living with her. She has a remote history of EtOH abuse. Denies smoking or drug use. PHYSICAL EXAMINATION: VITAL SIGNS: Blood pressure is 139/77, heart rate 79, respirations 18, and temperature 97.3 degrees Fahrenheit. GENERAL: Alert and oriented woman, in no apparent distress. NECK: Supple. Jugular veins not distended. CHEST: Coarse. No crackles. HEART: Sounds are regular to rate and rhythm. I do not hear murmur or gallop. The PMI is not palpable. ABDOMEN: Benign. Bowel sounds positive. No hepatosplenomegaly detected. EXTREMITIES: Lower extremity without edema, clubbing, or cyanosis. No hematoma in the groin site. NEUROLOGIC: The patient is with residual chronic hemiparesis right side. SKIN: Without rash. Sacral decubitus is in bandages. LABORATORY DATA: Current sodium 137, potassium 3.6, BUN is 8, and creatinine is 0.95. White cell count 6.8, hemoglobin 8.7, and platelet count is 293. EKG is reviewed. Initial EKG revealing sinus rhythm, nonspecific T-wave changes in inversion, and mild QT prolongation at 490 milliseconds seen. Subsequent EKGs reveal episodes of atrial fibrillation, rate of 165 beats per minute, occasional PVCs noted on 05/27/2019. Final EKG from 05/30/2019 reveals sinus rhythm. QTc is 513 milliseconds. Telemetry strips do reveal an episode of torsade like arrhythmia on the . ASSESSMENT AND PLAN: Ms. Finney is a 79-year-old woman with history of hypertension, remote stroke, some dementia, and possible ETOH abuse in the past, who presenting with a syncopal spell, but also had urinary tract infection on presentation. She has sacral decubitus as well. While inhouse, episodes of atrial fibrillation with rapid rates as well as an episode of torsade was noted in the setting of some hypokalemia. Her rhythm issues have resolved with continued amiodarone taper. Cardiac workup revealed a newly found cardiomyopathy with [id number] reduced LVEF and heart catheterization was negative for coronary artery disease of significance. Possibility of Takotsubo syndrome is made. My plan is; 1. Given her documented torsade like ventricular arrhythmia, the etiology could be a combination of QT prolongation, low potassium levels, possibly combined with the significant cardiomyopathy causing the episode. She seems to have done well with IV amiodarone and then p.o. amiodarone taper. Concern is remaining regarding her with prolonged QT interval. At this point, I am hesitant to continue amiodarone, hence the baseline QT prolongation and the increased QT interval on the most recent EKG despite the clinical success. For now, we will attempt to stop amiodarone and considering increased beta blockade and potassium levels should be kept over 4. 2. Paroxysmal atrial fibrillation. For now, it is suppressed likely with the amiodarone, difficult decision regarding antiarrhythmic agents, hence the baseline QT prolongation and significant cardiomyopathy. At this point, the rate control is planned with maximizing beta-harika therapy. 3. Newly found cardiomyopathy with [id number] reduced range. The echocardiogram seems to have been performed after the arrest is a possibility. Defibrillator therapy would be a strong consideration, but with the underlying infectious issues the decubitus ulcer would make implantation of an implantable cardioverter-defibrillator at this point difficult. I agree with the LifeVest plan and revisit the implantable cardioverter-defibrillator implantation after 3 months of therapy. 4. Hypokalemia with associated hydrochlorothiazide use and Lasix use and baseline attempt to maximizing potassium replacement and keep potassium levels over 4. 5. Decubitus ulcer as per Wound Care. 6. Markedly elevated CHADS-VASc score with prior stroke, hypertension, age, gender, 5 of apixaban, which could be considered to be maximized to 5 mg twice a day, if full risks makes administration of blood thinners difficult proposition, she could be considered for a Watchman device long-term. Discussed with the son and the patient, as well as with Dr. Church. Thank you for allowing me to participate in the care of this patient. Job ID: [id number]
[2019-05-31] MEDS: Aspirin 81 mg Enteric Coated Tablet PO SCH (12:44)
[2019-05-31] MEDS: Potassium Chloride 20 MEQ in Premix Bag 1 BAG IVPB SCH ×2 (12:45→15:53)
[2019-05-31] MEDS: Carvedilol 3.125 MG TAB PO SCH (12:53)
[2019-05-31] MEDS ORDERED: Iopamidol 370 76% 100 ML VIAL ONE (13:27)
--- NOTE | 2019-05-31 15:04 | PRG ---
DATE OF SERVICE: 05/31/2019 SUBJECTIVE: Angy Reg other than weakness, feels like she is close to her baseline. OBJECTIVE: VITAL SIGNS: She is afebrile. Heart rate is 79 . LUNGS: Clear. HEART: Regular rhythm. ABDOMEN: Soft. She tells me she is tentatively going to rehab. IMPRESSION: 1. Reactive airway, clinically improved. 2. Urinary tract infection. 3. torsades. 4. Atrial fibrillation. 5. Left ventricular systolic dysfunction. 6. Decubitus ulcer on presentation. We will continue to follow. Overall, she is reasonably stable at this time. Her work of breathing has improved dramatically IV antibiotics stopped and switched to p.o. antibiotics. Primary care issues surround her rhythm disturbances, she is currently being seen by the doormaker. We will sign off. Job ID: [id number]
[2019-05-31] MEDS: Carvedilol 6.25 MG TAB PO SCH (15:52)
[2019-05-31] MEDS ORDERED: Carvedilol 6.25 MG TAB PO SCH (17:00)
[2019-05-31] MEDS ORDERED: Amiodarone 200 MG TAB PO SCH (17:00)
[2019-05-31] MEDS: Cefuroxime Axetil 250 MG TAB PO SCH (21:22)
[2019-05-31] MEDS: Atorvastatin Calcium 40 MG TAB PO SCH (21:22)
[2019-06-01 04:32] LABS: #Eosinphils 0.1 thou/uL (0.0-0.7); #Lymphocytes 1.6 thou/uL (1.20-3.40); #Monocytes 0.5 thou/uL (0.11-0.59); #Neutrophils 2.6 thou/uL (1.40-6.50); %Basophils 0.4 % (0.0-1.0); %Eosinophils 2.5 % (0.0-10.0); %Lymphocytes 32.7 % (21.0-51.0); %Monocytes 10.4 % (0.0-10.0); Hemoglobin 8.2 g/dL (12.0-16.0); Mean Corpuscular HGB CONC 32.2 g/dL (32.0-36.0); Mean Corpuscular Hemoglobin 24.2 pg (27.0-31.0); Mean Corpuscular Volume 75.2 fL (78.0-98.0); Mean Platelet Volume 8.8 fL (7.4-10.4); Platelet Count 285 thou/uL (130-400); RBC Distribution Width 14.4 % (11.5-14.5); Red Blood Cell (RBC) Count 3.37 mill/uL (4.20-5.40); White Blood Cell (WBC) Count 4.8 thou/uL (4.8-10.8)
[2019-06-01 04:53] LABS: Anion Gap 8 mmol/L (10-20); BUN (Urea Nitrogen) 8 mg/dL (9.8-20.1); Calc. Creatinine Clearance 52 mL/min (70-130); Calcium 8.2 mg/dL (7.8-10.44); Carbon Dioxide 23 mmol/L (23-31); Chloride 107 mmol/L (98-107); Estimated GFR-MDRD 63; Glucose 92 mg/dL (83-110); Sodium 134 mmol/L (136-145)
[2019-06-01] MEDS: Carvedilol 6.25 MG TAB PO SCH (08:34)
[2019-06-01] MEDS: Cefuroxime Axetil 250 MG TAB PO SCH ×2 (08:35→21:59)
[2019-06-01] MEDS: Aspirin 81 mg Enteric Coated Tablet PO SCH (08:35)
--- NOTE | 2019-06-01 08:37 | PRG ---
DATE OF SERVICE: 06/01/2019 SUBJECTIVE: The patient is feeling well. She denies chest pain, shortness of breath, or palpitations. She tolerated heart catheterization yesterday, having some soreness, but otherwise feeling well. Appetite is good. No events noted on telemetry. She is anxious to get home. OBJECTIVE: VITAL SIGNS: Temperature 97.8, pulse is 65-70, respirations 16, blood pressure 112/60, and pulse oximetry is 99% on room air. GENERAL: She is awake and alert, in no acute distress. Speech is clear. NECK: Supple. HEART: Regular rate and rhythm without murmurs. LUNGS: Clear. ABDOMEN: Soft. EXTREMITIES: No edema. NEUROLOGIC: Right hemiparesis at her baseline. LABORATORY DATA: White blood cell count 4.8, hemoglobin and hematocrit 8.2 and 25.3 with microcytic indices, platelets of 285. Sodium 134, potassium 4.0, chloride 107, CO2 of 23, BUN and creatinine 8 and 1.02 with a GFR of 60, calcium of 8.2. Cardiac cath report as noted by Dr. Church. Ejection fraction of 30%. ASSESSMENT/PLAN: 1. This is a 79-year-old female patient with a history of cerebrovascular accident, hypertension, admitted for syncopal episode with subsequent atrial fibrillation with rapid ventricular response and arrest with ventricular tachycardia and signs of torsade de pointes. She was successfully resuscitated and doing well. She is initially on amiodarone and now is able to be weaned off due to QT prolongation. Reviewed note from Dr. Kimble and attempting to maximize her beta blockade with carvedilol as she is now off amiodarone. 2. Cardiomyopathy with decreased left ventricular ejection fraction. We will continue carvedilol. 3. Urinary tract infection. We will continue p.o. cephalosporin for E coli, seems to be improving at this point. 4. Deconditioning and placement. Once okay with Cardiology, we will transfer to either [facility] or rehab as she appears to be stable for transfer when okay with Cardiology. Job ID: [id number]
[2019-06-01] MEDS ORDERED: Enoxaparin Sodium 40 MG/0.4 ML SYRINGE SC SCH (09:00)
[2019-06-01] MEDS ORDERED: Amiodarone 200 MG TAB PO SCH (09:00)
[2019-06-01 11:32] VITALS: BMI 26.6
[2019-06-01] MEDS: Carvedilol 25 MG TAB PO SCH (16:06)
--- NOTE | 2019-06-01 16:33 | PDOC.PALPN ---
Palliative Progress Note - Subjective Awake, currently on telemetry. Cheerful and states she feels "good' family at bedside. - Objective Vital Signs: Vital Signs - Most Recent Temp Pulse Resp BP Pulse Ox 98.0 F 69 16 122/60 98 06/01/19 15:36 06/01/19 15:36 06/01/19 15:36 06/01/19 15:36 06/01/19 15:36 - Physical Exam Constitutional: NAD HEENT: moist MMs, EOMI Respiratory: unlabored breathing Cardiovascular: RRR Gastrointestinal: soft, positive bowel sounds Musculoskeletal: no edema - Assessment (1) Palliative care encounter Code(s): Z51.5 - ENCOUNTER FOR PALLIATIVE CARE Current Visit: Yes Status: Acute (2) Physical deconditioning Code(s): R53.81 - OTHER MALAISE Current Visit: Yes Status: Acute (3) Dementia Code(s): F03.90 - UNSPECIFIED DEMENTIA WITHOUT BEHAVIORAL DISTURBANCE Current Visit: Yes Status: Acute Qualifiers: Dementia type: vascular dementia Dementia behavioral disturbance: without behavioral disturbance Qualified Code(s): F01.50 - Vascular dementia without behavioral disturbance - Plan Plan: *MPOA completed for patient by Mariam Barr *Patient and family have no further needs at this time. Palliative Care will sign off, however please reconsult if assistance is needed in the future for assistance with conversations related to resuscitation status , symptom management, or education related to complex disease processes. [40] minutes spent on this encounter with >50% of the time in counseling and coordination of care.
[2019-06-01] MEDS: Apixaban 5 MG TAB PO SCH (21:59)
[2019-06-01] MEDS: Atorvastatin Calcium 40 MG TAB PO SCH (21:59)
[2019-06-02 05:06] LABS: #Eosinphils 0.2 thou/uL (0.0-0.7); #Lymphocytes 1.5 thou/uL (1.20-3.40); #Monocytes 0.5 thou/uL (0.11-0.59); #Neutrophils 3.2 thou/uL (1.40-6.50); %Basophils 0.3 % (0.0-1.0); %Eosinophils 2.9 % (0.0-10.0); %Lymphocytes 28.2 % (21.0-51.0); %Monocytes 9.3 % (0.0-10.0); %Neutrophils 59.4 % (42.0-75.0); Mean Corpuscular HGB CONC 30.8 g/dL (32.0-36.0); Mean Corpuscular Hemoglobin 23.9 pg (27.0-31.0); Mean Corpuscular Volume 77.4 fL (78.0-98.0); Mean Platelet Volume 9.5 fL (7.4-10.4); Platelet Count 289 thou/uL (130-400); RBC Distribution Width 15.5 % (11.5-14.5); Red Blood Cell (RBC) Count 3.35 mill/uL (4.20-5.40); White Blood Cell (WBC) Count 5.4 thou/uL (4.8-10.8)
[2019-06-02 05:23] LABS: Anion Gap 6 mmol/L (10-20); BUN (Urea Nitrogen) 8 mg/dL (9.8-20.1); Calc. Creatinine Clearance 54 mL/min (70-130); Calcium 8.5 mg/dL (7.8-10.44); Carbon Dioxide 24 mmol/L (23-31); Chloride 108 mmol/L (98-107); Estimated GFR-MDRD 63; Glucose 98 mg/dL (83-110); Potassium 4.3 mmol/L (3.5-5.1); Sodium 134 mmol/L (136-145)
[2019-06-02] MEDS: Apixaban 5 MG TAB PO SCH (09:17)
[2019-06-02] MEDS: Carvedilol 25 MG TAB PO SCH ×2 (09:17→18:01)
[2019-06-02] MEDS: Cefuroxime Axetil 250 MG TAB PO SCH (09:18)
--- NOTE | 2019-06-02 09:57 | PRG ---
DATE OF SERVICE: 06/01/2019 SUBJECTIVE: Ms. Finney seems to be doing well. No new symptoms noted. OBJECTIVE: VITAL SIGNS: Blood pressure is 112/60, heart rate 70, respiratory rate 18, temperature 97.8 degrees Fahrenheit. PHYSICAL EXAMINATION: GENERAL: Alert and oriented woman, in no apparent distress. NECK: Supple. Jugular veins not distended. CHEST: Coarse. No crackles. HEART: Heart sounds are regular to rate and rhythm. No murmur or gallop. ABDOMEN: Benign. Bowel sounds positive. EXTREMITIES: Lower extremities without edema, clubbing, or cyanosis. DATABASE: The telemetry strips reveal sinus rhythm, arrhythmias, QT interval is still somewhat prolonged. LABORATORY DATA: White cell count 4.8, hemoglobin 8.2, platelet count is 85. Sodium 134, potassium 4, BUN is 8, and creatinine 1.02. ASSESSMENT AND PLAN: Mrs. Finney is a pleasant 79-year-old woman with history off remote stroke and dementia, who presenting with syncopal spell and had an in-hospital arrest in the setting of hypokalemia and QT prolongation due to torsade like arrhythmia episodes after cardiac evaluation revealing Takotsubo cardiomyopathy. She received amiodarone due to marked QT prolongation. For now, no recurrent arrhythmias are noted. PLAN: 1. At this point, continue beta-harika therapy. Maximize as tolerated. 2. For now, we will hold amiodarone due to marked QT prolongation. 3. Correct potassium, keep average over 4. 4. Decubitus ulcer care as per wound care. 5. Cardiomyopathy. If LVEF does not improve, she likely would be candidate for prophylactic ICD implant in three months. At this point, she is limited candidate for ICD implant for ongoing decubitus infection. She also has newly discovered possiibly Tako-tsubo type of cardiomyopathy, which as we discussed with Dr. Church, likely to improve. We will follow up with you and see her as an outpatient. Job ID: [id number] MTDD
[2019-06-02 17:26] VITALS: BP 133/61; TEMP 98.1
--- NOTE | 2019-06-03 05:43 | DIS ---
DATE OF ADMISSION: 05/26/2019 DATE OF DISCHARGE: 06/02/2019 ADMISSION DIAGNOSES: Syncopal episode, urinary tract infection, rule out myocardial infarction. OTHER DIAGNOSES: History of cerebrovascular accident, right hemiparesis, weakness. DISCHARGE DIAGNOSES: Syncopal episode, resolved; cardiac arrhythmias including episode of cardiac arrest with ventricular tachycardia and Torsades de pointes; atrial fibrillation with rapid ventricular response. CONSULTATIONS: Dr. Church for Cardiology, Dr. Macias for Intensive Care, Dr. Kimble for Electrophysiology. HOSPITAL COURSE: This is a 79-year-old female patient with past history of a CVA, hypertension, hyperlipidemia, presented to the emergency department after a syncopal episode at home. In the emergency department, she was found to have urinary tract infection and started on antibiotics. She was admitted on telemetry unit. She had an event where she had another syncopal episode. She had a code blue, ended up being resuscitated with epinephrine cardioversion. She underwent cardiac catheterization by Dr. Church and did well. She was eventually started on IV amiodarone for her atrial fibrillation with rapid ventricular response and tolerated that well. I kept her in normal rhythm at that point. She was able to be transferred out of the ICU to telemetry. She had no further episodes. She was seen by Dr. Kimble. Due to the atrial fibrillation and ventricular tachycardia, he felt like both her hypokalemia and possibly the recent infection and nonischemic cardiomyopathy may have been related to her developing the dysrhythmias. He recommended getting her off the amiodarone due to the QT prolongation and maximizing beta harika therapy. She tolerated that. Her blood pressure remained stable. She was off the amiodarone, on just beta blockers at that time. He did recommend a LifeVest for possible recurrence of the ventricular tachycardia and possibly outpatient implantable cardiac defibrillator. When the patient was stable, she did qualify for intermediate facility by Case Management, and due to these episodes in her weakness from her past stroke, she was transferred to a intermediate facility in good condition. DISCHARGE PHYSICAL EXAMINATION: VITAL SIGNS: Temperature 98.1, pulse is 70, respirations 17, blood pressure 135/68, pulse ox is 94% on room air. GENERAL: She is awake and alert, in no acute distress. Speech is somewhat slurred, but at her baseline. HEENT: Mucosa is moist. NECK: Supple. HEART: Regular rate and rhythm. LUNGS: Clear. ABDOMEN: Soft. EXTREMITIES: With no edema. She does have right hemiparesis at her baseline. LABORATORY DATA: White blood cell count 5400, hemoglobin and hematocrit 8 and 25.9 with microcytic indices, platelets of 289. Sodium 134, potassium 4.3, chloride 108, CO2 of 24, BUN and creatinine of 8 and 1.03, serum glucose of 98. DISCHARGE MEDICATIONS: Include; 1. Eliquis 5 mg b.i.d. 2. Lipitor 40 mg daily. 3. Colace daily. 4. Carvedilol 25 mg b.i.d. 5. Protonix 40 mg daily. 6. Potassium 20 mEq daily. FOLLOWUP INSTRUCTIONS: 1. The patient to be followed up following her intermediate stay. Follow up with Dr. Kimble in 2 to 3 weeks as well as with Dr. Church. She is to have a followup potassium level done at least every 2 to 3 weeks. 2. I will follow up her anemia as an outpatient as well due to her being on the anticoagulation. Job ID: [id number]
--- NOTE | 2019-06-05 18:16 | EKG ---
Test Reason : Blood Pressure : / mmHG Vent. Rate : 170 BPM Atrial Rate : 170 BPM P-R Int : 000 ms QRS Dur : 116 ms QT Int : 274 ms P-R-T Axes : 000 078 -37 degrees QTc Int : 460 ms Atrial fibrillation with rapid ventricular response with aberrantly conducted beats Right bundle branch block T wave abnormality, consider inferior ischemia Abnormal ECG When compared with ECG of 26-MAY-2019 11:17, (Unconfirmed) Right bundle branch block is now Present Confirmed by BORIS QUINTERO (2) on 06/05/2019 6:16:26 PM Referred By: Confirmed By:BORIS QUINTERO
--- NOTE | 2019-06-05 18:16 | EKG ---
Test Reason : Blood Pressure : / mmHG Vent. Rate : 165 BPM Atrial Rate : 166 BPM P-R Int : 000 ms QRS Dur : 088 ms QT Int : 280 ms P-R-T Axes : 000 012 190 degrees QTc Int : 463 ms Atrial fibrillation with rapid ventricular response with premature ventricular or aberrantly conducte d complexes Abnormal ECG When compared with ECG of 21-MAY-2013 09:59, Significant changes have occurred Confirmed by BORIS QUINTERO (2) on 06/05/2019 6:16:38 PM Referred By: Confirmed By:BORIS QUINTERO
--- NOTE | 2019-06-05 18:18 | EKG ---
Test Reason : ROUTINE Blood Pressure : / mmHG Vent. Rate : 090 BPM Atrial Rate : 090 BPM P-R Int : 142 ms QRS Dur : 084 ms QT Int : 462 ms P-R-T Axes : 058 044 168 degrees QTc Int : 565 ms Normal sinus rhythm with sinus arrhythmia Septal infarct , age undetermined T wave abnormality, consider anterolateral ischemia Prolonged QT Abnormal ECG When compared with ECG of 27-MAY-2019 07:31, (Unconfirmed) Sinus rhythm has replaced Atrial fibrillation Vent. rate has decreased BY 75 BPM Septal infarct is now Present Confirmed by BORIS QUINTERO (2) on 06/05/2019 6:17:46 PM Referred By: MONICA Confirmed By:BORIS QUINTERO
== END 2019-06-02 20:17 | DRG 871 ==
LOC: ERS 10:57 → OBSVTOIN 12:35 → 2NO 12:35 → CCU 05-27 06:58 → 2NO 05-30 16:56
PROVIDERS: ADMIT Family Medicine; ATTEND Family Medicine
PROC: 5A12012 Performance of Cardiac Output, Single, Manual (ICD-10-PCS; 2019-05-26)
PROC: 3E033XZ Introduction of Vasopressor into Peripheral Vein, Percutaneous Approach (ICD-10-PCS; 2019-05-26)
PROC: 5A2204Z Restoration of Cardiac Rhythm, Single (ICD-10-PCS; 2019-05-27)
PROC: 4A023N7 Measurement of Cardiac Sampling and Pressure, Left Heart, Percutaneous Approach (ICD-10-PCS; principal; 2019-05-31)
PROC: B2151ZZ Fluoroscopy of Left Heart using Low Osmolar Contrast (ICD-10-PCS; 2019-05-31)
PROC: B2111ZZ Fluoroscopy of Multiple Coronary Arteries using Low Osmolar Contrast (ICD-10-PCS; 2019-05-31)
DX: A41.9 Sepsis, unspecified organism (principal); L89.323 Pressure ulcer of left buttock, stage 3; I46.9 Cardiac arrest, cause unspecified; I47.2 Ventricular tachycardia; I69.151 Hemiplegia and hemiparesis following nontraumatic intracerebral hemorrhage affecting right dominant side; I50.22 Chronic systolic (congestive) heart failure; I42.8 Other cardiomyopathies; I51.81 Takotsubo syndrome; I45.89 Other specified conduction disorders; Z51.5 Encounter for palliative care; F01.50 Vascular dementia, unspecified severity, without behavioral disturbance, psychotic disturbance, mood disturbance, and anxiety; I48.91 Unspecified atrial fibrillation; E87.6 Hypokalemia; E78.5 Hyperlipidemia, unspecified; B96.20 Unspecified Escherichia coli [E. coli] as the cause of diseases classified elsewhere; I11.0 Hypertensive heart disease with heart failure; I25.2 Old myocardial infarction; I69.392 Facial weakness following cerebral infarction; I69.328 Other speech and language deficits following cerebral infarction
CPT/HCPCS: 36415; 51701; 70450; 71045; 76942; 80048; 80053; 81003; 81015; 82553; 82805; 83735; 83880; 84100; 84439; 84443; 84481; 84484; 85025; 87077; 87086; 87186; 92950; 93005; 93010; 93306; 93458; 93798; 93880; 96365; A4353; C1769; C9113; J0171; J0282; J0696; J1644; J1650; J2916; J3010; J3475; J3480; J3490; J7050; J7070; Q9967

== ENCOUNTER 2019-08-09 13:07 | Inpatient (IN) | payer MEDICARE, MEDICAID ==
[2019-08-09 14:05] LABS: #Lymphocytes 1.3 thou/uL (1.20-3.40); #Monocytes 0.9 thou/uL (0.11-0.59); #Neutrophils 9.9 thou/uL (1.40-6.50); %Basophils 0.3 % (0.0-1.0); %Eosinophils 0.1 % (0.0-10.0); %Lymphocytes 10.7 % (21.0-51.0); %Monocytes 7.7 % (0.0-10.0); %Neutrophils 81.2 % (42.0-75.0); Hemoglobin 7.2 g/dL (12.0-16.0); Mean Corpuscular Hemoglobin 23.4 pg (27.0-31.0); Mean Corpuscular Volume 75.4 fL (78.0-98.0); Mean Platelet Volume 8.7 fL (7.4-10.4); Platelet Count 285 thou/uL (130-400); RBC Distribution Width 14.8 % (11.5-14.5); Red Blood Cell (RBC) Count 3.09 mill/uL (4.20-5.40); White Blood Cell (WBC) Count 12.2 thou/uL (4.8-10.8)
[2019-08-09 14:29] LABS: ALT (SGPT) 11 U/L (8-55); AST (SGOT) 45 U/L (5-34); Albumin 2.3 g/dL (3.4-4.8); Alkaline Phosphatase 126 U/L (40-110); Anion Gap 14 mmol/L (10-20); BUN (Urea Nitrogen) 20 mg/dL (9.8-20.1); Bilirubin, Total 0.9 mg/dL (0.2-1.2); Calc. Creatinine Clearance 0 mL/min (70-130); Calcium 8.4 mg/dL (7.8-10.44); Carbon Dioxide 21 mmol/L (23-31); Chloride 103 mmol/L (98-107); Estimated GFR-MDRD 48; Globulin 4.3 g/dL (2.4-3.5); Glucose 92 mg/dL (83-110); Lipase 15 U/L (8-78); Potassium 3.3 mmol/L (3.5-5.1); Protein, Total 6.6 g/dL (6.0-8.3); Sodium 135 mmol/L (136-145)
[2019-08-09 14:44] LABS: Bilirubin 1+ (Negative); Blood, Urine Negative (Negative); Clarity Clear (Clear); Glucose, Urine (Dipstick) Normal (Negative); Leukocyte 25 Leu/uL (Negative); Nitrite Negative (Negative); Protein, Urine (Dipstick) 50 mg/dL (Neg-Trace); RBC/HPF 0-3 HPF (0-3); Squamous Epithelial 0-3 HPF (0-3); Urobilinogen 6 mg/dL (Less than 2); WBC/HPF 0-3 HPF (0-3)
[2019-08-09 14:46] LABS: Bacteria/HPF 1+ HPF (None Seen)
--- NOTE | 2019-08-09 15:53 | ULT ---
RIGHT UPPER QUADRANT ULTRASOUND: 08/09/2019 HISTORY: Right upper quadrant pain. TECHNIQUE: Multiplanar goode-scale sonographic imaging of the right upper quadrant provided. FINDINGS: The imaged pancreas is unremarkable. The distal body is obscured by bowel gas. The hepatic parenchymal is heterogeneous and on some of the provided images there is the suggestion o f multiple hepatic masses. This includes a possible mass within the right lobe, measuring 1.9 x 2.9 c m. The gallbladder is nonvisualized, question prior cholecystectomy. Provided images of the common bile duct demonstrate normal caliber at 3 mm. The right kidney measures 9.7 cm in craniocaudal dimension a nd demonstrates no discrete stone, hydronephrosis or mass. IMPRESSION: 1. Findings suspicious for masses within the hepatic parenchyma, which may signify metastatic disease . Recommend further assessment via CT examination. 2. Nonvisualization of the gallbladder, question surgical absence. CODE T POS: TPC
[2019-08-09] MEDS ORDERED: Acetaminophen 325 MG TAB PO PRN (16:14)
[2019-08-09] MEDS ORDERED: Potassium Chloride 20 MEQ TAB PO SCH (17:00)
[2019-08-09 17:23] LABS: Iron 18 ug/dL (50-170); Iron Binding Capacity, Total 83 mcg/dL (265-497)
[2019-08-09 18:05] LABS: INR-International Normal Ratio 2.2; PTT 40.6 SEC (22.9-36.1); Prothrombin Time 24.6 SEC (12.0-14.7)
[2019-08-09 18:17] LABS: Lactic Acid 1.1 mmol/L (0.5-2.2)
--- NOTE | 2019-08-09 19:23 | HP ---
CHIEF COMPLAINT: Diarrhea. HISTORY OF PRESENT ILLNESS: This patient is a 79-year-old female, who was admitted here in May, at which time she was found to have a significant nonischemic cardiomyopathy with an ejection fraction in the range of 25%. At that time, the patient unfortunately had ventricular tachycardia arrest and had resuscitation. She subsequently was placed on beta blockers and held off amiodarone due to some QT prolongation and was discharged on a LifeVest with the possibility of coming back for AICD implantation. Today, the patient presents to the emergency department. Her son is with her. Although he does not live with her, he knows the history pretty well. Apparently, over the past week, the patient has had significant diarrhea with poor p.o. intake of food or water, and her mental status has declined significantly. Says that she has had a prior stroke and so communication with her can be difficult, but over the past week, it has become nearly impossible. They have asked her if she has had abdominal pain at home, and she has denied it, but he believes that she actually is because she frequently is grimacing and clutching her abdomen. Unaware of any fevers or chills or blood in the stool. REVIEW OF SYSTEMS: Other review of systems is not obtainable given the patient's encephalopathy. 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 She has history of dementia, trigeminal neuralgia, alcohol abuse up to about 15 years ago, and hypertension. The patient had a history of multiple CVAs with right-sided hemiplegia and history of vascular dementia. Atrial fibrillation, ventricular tachycardia, and hyperlipidemia. SURGICAL HISTORY: Prior cholecystectomy. FAMILY HISTORY: Type 2 diabetes and hypertension. Her son who is with her says he just went through treatment for neuroendocrine tumor. SOCIAL HISTORY: The patient lives at home. Two of her grandchildren live there with her. She is currently a nonsmoker, nondrinker, and nondrug user. She does have the significant history of daily drinking up to about 15 years ago. She is full code. Her son who is with her today is her medical power of commercial attorney and surrogate decision maker. MEDICATIONS: The patient's son is obtaining the actual medications. Based on her discharge list from June 02, she is on 1. Eliquis 5 mg b.i.d. 2. Lipitor 40 mg daily. 3. Colace one p.o. daily. 4. Carvedilol 25 mg b.i.d. 5. Protonix 40 mg daily. 6. Potassium 20 mEq daily. ALLERGIES: LISINOPRIL AND PROCHLORPERAZINE. PHYSICAL EXAMINATION: VITAL SIGNS: On presentation, blood pressure was 104/61, pulse 77, respirations 19, temperature was 98.4, and O2 saturations 98% on room air. GENERAL APPEARANCE: Age-appropriate female, in no distress. She is nonverbal for the most part. She keeps making "pee" sound repetitively when trying to speak. She is generally cooperative with the exam. HEENT: PERRL. She has no OP lesions and poor dentition. NECK: Supple and symmetric without lymphadenopathy, JVD, or bruits. HEART: Regular without murmurs, gallops, or rubs. LUNGS: Clear to auscultation bilaterally with good chest wall expansion and air exchange. ABDOMEN: Soft, nondistended. It does appear that she is tender with palpation as she does tend to guard a bit and grunt and grimace with the exam. No masses are palpable, but she is guarding. EXTREMITIES: There is no cyanosis, clubbing, or edema. NEUROLOGICAL: The patient has spontaneous movement of her extremities. She seems to be moving more on the left than on the right. PSYCH: As noted above, the patient appears somewhat encephalopathic. LABORATORY DATA: White count 12.2, hemoglobin 7.2, and platelets 285. Sodium 135, potassium 3.3, chloride 103, CO2 is 21, BUN is 20, creatinine is 1.3, lactic acid 2.8, calcium 8.4, AST is 45, ALT 11, alkaline phosphatase 126, albumin 2.3, lipase 15. Urinalysis; 1+ bilirubin, 6+ urobilinogen, and trace protein. Ultrasound of the abdomen shows suspicion of masses within the hepatic parenchyma, which may signify metastatic disease. Nonvisualization of the gallbladder with questionable surgical absence, which is consistent with her history. IMPRESSION AND PLAN: 1. Acute diarrheal illness, may be related to the patient's cancer and may be related to some gastrointestinal bleeding given her anemia. We will hydrate and continue to work up. 2. Severe anemia. The patient has a prior hemoglobin of 9.4 on 07/07/2019, although she has been running in the 8 to 9 range for the past several months since her discharge from the hospital. I am going to go ahead and transfuse 1 unit and get check of the stools. The patient has been on Eliquis during that time for atrial fibrillation and may be contributing to some gastrointestinal losses. Her MCV is low consistent with the microcytic anemia, possibly iron deficiency. We will check iron studies. 3. Liver masses, concerning for metastases. This patient was a heavy drinker and that could be liver primary. We will need to get CT scan and likely get a biopsy. I am going to hold off on the CT, so that I can give some contrast after she has been a bit more hydrated. 4. History of severe nonischemic cardiomyopathy. We will have to be judicious with the fluids. She continues to wear a LifeVest. Given her potential metastatic disease, she is likely not a candidate for AICD placement. 5. Lactic acidosis, likely due to some starvation given her poor p.o. intake. 6. Metabolic encephalopathy. The patient's mental status has diminished over the last week since she has been symptomatic. We will be checking an ammonia level. 7. Elevated liver enzymes, consistent with the prior mentioned metastatic disease. 8. History of atrial fibrillation, appears to be in sinus rhythm now. We will hold Eliquis so that we can anticipate biopsy. 9. Mild hypokalemia. We will give some oral repletion. Job ID: [id number]
[2019-08-09] MEDS ORDERED: Famotidine 20 MG TAB PO SCH (21:00)
[2019-08-09] MEDS: Sodium Chloride 0.9% 1,000 ML IV SCH (21:06)
[2019-08-09] MEDS ORDERED: Pantoprazole 40 MG VIAL ONE (21:08)
[2019-08-09] MEDS ORDERED: Carvedilol 25 MG TAB ONE (21:09)
[2019-08-09] MEDS: Carvedilol 25 MG TAB PO SCH (21:12)
[2019-08-09] MEDS: Pantoprazole 40 MG VIAL IVP SCH (21:13)
[2019-08-10 05:15] LABS: #Lymphocytes 1.1 thou/uL (1.20-3.40); #Neutrophils 9.9 thou/uL (1.40-6.50); %Basophils 0.1 % (0.0-1.0); %Lymphocytes 9.4 % (21.0-51.0); %Monocytes 8.4 % (0.0-10.0); %Neutrophils 82.1 % (42.0-75.0); Hemoglobin 8.5 g/dL (12.0-16.0); Mean Corpuscular HGB CONC 32.6 g/dL (32.0-36.0); Mean Corpuscular Hemoglobin 25.3 pg (27.0-31.0); Mean Corpuscular Volume 77.7 fL (78.0-98.0); Platelet Count 251 thou/uL (130-400); RBC Distribution Width 16.8 % (11.5-14.5); Red Blood Cell (RBC) Count 3.36 mill/uL (4.20-5.40); White Blood Cell (WBC) Count 12.1 thou/uL (4.8-10.8)
[2019-08-10 05:26] LABS: ALT (SGPT) 9 U/L (8-55); AST (SGOT) 39 U/L (5-34); Albumin 2.1 g/dL (3.4-4.8); Alkaline Phosphatase 116 U/L (40-110); Anion Gap 11 mmol/L (10-20); BUN (Urea Nitrogen) 18 mg/dL (9.8-20.1); Bilirubin, Total 0.9 mg/dL (0.2-1.2); Calc. Creatinine Clearance 44 mL/min (70-130); Calcium 8.1 mg/dL (7.8-10.44); Carbon Dioxide 22 mmol/L (23-31); Chloride 109 mmol/L (98-107); Estimated GFR-MDRD 61; Globulin 3.9 g/dL (2.4-3.5); Glucose 72 mg/dL (83-110); Potassium 3.4 mmol/L (3.5-5.1); Sodium 139 mmol/L (136-145)
[2019-08-10] MEDS: Sodium Chloride 0.9% 1,000 ML IV SCH ×2 (05:50→22:18)
[2019-08-10] MEDS ORDERED: FLU VACC TS2019-20(65YR UP)/PF 180 MCG/0.5 ML SYRINGE IM ONE (09:00)
--- NOTE | 2019-08-10 09:10 | CT ---
CLINICAL HISTORY: Liver masses on ultrasound. TECHNIQUE: Multiple contiguous axial images were obtained and a CT of the abdomen without and with IV contrast. Coronal and sagittal reformats were performed. COMPARISON: None. FINDINGS: Liver: Size: Normal. Contour: Smooth. Mass: There is a heterogeneous appearance of the right lobe of the liver which likely represents mult iple masses in the right lobe of the liver. The largest measures 9.7 cm in size. Gallbladder and biliary system: Absent No biliary ductal dilatation. Spleen: Normal. Pancreas: Normal. Kidneys: Punctate 1 to 2 mm calcifications in the hilar regions of both kidneys may represent vascula r calcifications or nonobstructing urinary collecting system calcifications. Adrenal glands: Normal. GI tract: There are a few scattered diverticula in the colon. Normal small bowel. Normal appendix. Abdominal aorta and its major branches: Normal. No aneurysm. Vascular calcifications in the aorta. Peritoneum/retroperitoneum: Normal. A small amount of free fluid is seen in the pelvis. No adenopath y. Reproductive organs: Air is seen within the endometrial canal which is nonspecific. Body wall and musculoskeletal: Degenerative changes in the spine. Visualized lower thorax: Tiny bilateral pleural effusions with adjacent atelectasis. IMPRESSION: 1. The liver lesions involving the right lobe of liver are suspicious for metastatic disease. The homero long and is unable to be identified on this exam. 2. Nonspecific air within the uterus.
[2019-08-10] MEDS: Carvedilol 25 MG TAB PO SCH ×3 (10:42→17:41)
[2019-08-10] MEDS: Pantoprazole 40 MG VIAL IVP SCH ×2 (10:42→22:17)
--- NOTE | 2019-08-10 10:54 | PDOC.HOSPP ---
- Subjective Subjective: Doing ok. Wants to eat. - Objective Vital Signs & Weight: Vital Signs (12 hours) Temp Pulse Resp BP BP Pulse Ox 08/10/19 08:00 98.4 F 74 18 117/56 L 99 08/10/19 03:16 99.1 F 80 16 126/80 98 08/09/19 23:54 98.3 F 77 16 111/58 L 98 08/09/19 23:31 98.9 F 16 Weight Weight 139 lb 3 oz Most Recent Monitor Data Heart Rate from ECG 75 NIBP 106/55 Respiration from ECG 16 I&O: 08/09/19 08/10/19 08/11/19 06:59 06:59 06:59 Intake Total 890 Balance 890 Result Diagrams: 08/10/19 04:28 08/10/19 04:28 Hospitalist ROS - Medication Medications: Active Medications Generic Name Dose Route Start Last Admin Trade Name Freq PRN Reason Stop Dose Admin Acetaminophen 650 mg 08/09/19 16:14 08/09/19 21:07 Tylenol PO 650 mg Q4H PRN Administration Headache/Fever/Mild Pain (1-3) Carvedilol 25 mg 08/09/19 17:00 08/10/19 10:42 Coreg PO 25 mg BID-WM MO Administration Sodium Chloride 1,000 mls @ 75 mls/hr 08/09/19 17:00 08/10/19 05:50 Normal Saline 0.9% IV 1,000 mls .[id number] MO Administration Pantoprazole Sodium 40 mg 08/09/19 21:00 08/10/19 10:42 Protonix IVP 40 mg Q12HR MO Administration - Exam General Appearance: NAD Heart: RRR, no murmur, no gallops, no rubs, normal peripheral pulses Heart - other findings: Frequent ectopy Respiratory: CTAB, no wheezes, no rales, no ronchi, normal chest expansion, no tachypnea, normal percussion Gastrointestinal: soft, non-distended Gastrointestinal - other findings: Appears to have mild diffuse TTP, but verbally limited. Extremities: no cyanosis, no clubbing, no edema Neurological - other findings: Right sided weakness. Psychiatric - other findings: Limited verbally with expressive aphasia Hosp A/P (1) Liver metastases Code(s): C78.7 - SECONDARY MALIG NEOPLASM OF LIVER AND INTRAHEPATIC BILE DUCT Status: Acute (2) Iron deficiency anemia Code(s): D50.9 - IRON DEFICIENCY ANEMIA, UNSPECIFIED Status: Acute (3) Guaiac positive stools Status: Acute (4) Atrial fibrillation Code(s): I48.91 - UNSPECIFIED ATRIAL FIBRILLATION Status: Acute (5) Hemiplegia of right dominant side as late effect of cerebral infarction Code(s): I69.351 - HEMIPLGA FOLLOWING CEREBRAL INFRC AFF RIGHT DOMINANT SIDE Status: Acute (6) Dementia Code(s): F03.90 - UNSPECIFIED DEMENTIA WITHOUT BEHAVIORAL DISTURBANCE Status: Acute Qualifiers: Dementia type: vascular dementia Dementia behavioral disturbance: without behavioral disturbance Qualified Code(s): F01.50 - Vascular dementia without behavioral disturbance (7) Non-ischemic cardiomyopathy Code(s): I42.8 - OTHER CARDIOMYOPATHIES Status: Acute (8) Acute diarrhea Code(s): R19.7 - DIARRHEA, UNSPECIFIED Status: Acute (9) Metabolic encephalopathy Code(s): G93.41 - METABOLIC ENCEPHALOPATHY Status: Acute (10) Hypokalemia Code(s): E87.6 - HYPOKALEMIA Status: Acute - Plan CT confirms mets to the liver. Primary not identified. CT chest ordered. CT guided biopsy of liver lesions ordered. Holding Eliquis. Last dose 10/16 am. Palliative Care consult. Need to establish goals of care in a patient with dementia, hemiplegia, cardiomyopathy and metastatic cancer. Will need to consider GI workup given the iron def anemia. GI could be primary source.
[2019-08-10 14:11] VITALS: BMI 21.8
--- NOTE | 2019-08-10 23:31 | CON ---
DATE OF CONSULTATION: 08/10/2019 REASON FOR CONSULTATION: Anemia, abnormal GI imaging, positive FOBT. 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 The patient was recently discharged from the hospital approximately 2 weeks ago, for which she had been treated for ventricular tachycardia with cardiac arrest and subsequent resuscitation. She was ultimately discharged to home with LifeVest and with the possibility to be re-evaluated as an outpatient for AICD placement. However, over the last week, she has been having increased diarrhea characterized as multiple liquid stools per day, although the patient had a very difficult time expressing her thoughts due to an aphasia resultant from her multiple strokes. Family was at bedside, could not quantify the amount of diarrhea either. With the increased diarrhea, there was also some change in her mental status, which then ultimately prompted the family to bring her to [place] [facility] for further evaluation. While in the ER, she did complain of right upper quadrant abdominal pain, which then prompted a right upper quadrant ultrasound showing the presence of a possible hepatic mass, and she was ultimately admitted to the hospital for further evaluation. Currently, the patient states that she is feeling better, although she does continue to have some diarrhea today (although she could not quantify how much or how often). Otherwise, she states that she is doing well with no complaints of nausea, vomiting, fevers, chills, dysphagia, odynophagia or abdominal pain. REVIEW OF SYSTEMS: A 10-category review of systems was attempted, but difficult to obtain due to the patient's aphasia. PAST MEDICAL HISTORY: As per HPI. PAST SURGICAL HISTORY: Cholecystectomy. FAMILY HISTORY: Diabetes, hypertension, and possible neuroendocrine tumor (son). SOCIAL HISTORY: No stated tobacco, alcohol or illicit drug use within the chart, although the patient does have a prior extensive alcohol use, drinking up to about 15 years ago. OUTPATIENT MEDICATIONS: Reviewed. ALLERGIES: LISINOPRIL AND PROCHLORPERAZINE. PHYSICAL EXAMINATION: VITAL SIGNS: Temperature 98.7, pulse 72, blood pressure 116/57, respiratory rate 14, and saturating 97% on room air. GENERAL: The patient was lying in bed, in no acute distress. Alert and oriented x3. Speech somewhat unintelligible at times, but was able to answer yes and no questions effectively. HEENT: Normocephalic and atraumatic. NECK: Supple. No scleral icterus noted. CARDIOVASCULAR: Regular rate and rhythm with no discernible murmurs, gallops or rubs. RESPIRATORY: Clear to auscultation bilaterally with no discernible wheezes or rales. ABDOMEN: Normoactive bowel sounds. Soft and nondistended. Mild tenderness to palpation in the midepigastric region. EXTREMITIES: No cyanosis, clubbing or edema. LABORATORY DATA: CBC with a white blood cell count of 12.1, hemoglobin 8.5, hematocrit 26.1, and platelets 251. INR 2.2. Chemistry with a sodium of 139, potassium 3.4, chloride 109, CO2 of 22, BUN 18, creatinine 1.06, and glucose 72. AST 39, ALT 9, alkaline phosphatase 116, total bilirubin 0.9, and albumin 2.1. Iron 18, ferritin 372, and TIBC 83. IMAGING DATA: A right upper quadrant ultrasound was obtained on August 09, 2019, which showed heterogeneous hepatic parenchyma with the suggestion of multiple hepatic masses including a possible mass within the right hepatic lobe measuring 1.9 x 2.9 cm. The common bile duct measured approximately 3 mm in diameter with no other abnormal findings. Followup imaging with a CT of the abdomen and pelvis was obtained on August 10, 2019, which again showed a heterogeneous mass within the right lobe of the liver, likely representing multiple masses within the lobe itself, the largest being 9.7 cm in diameter. Based on its characteristics, this was likely to be part of metastatic disease with no primary malignancy identified on this exam. ASSESSMENT AND PLAN: The patient is a 79-year-old female with past medical history of nonischemic cardiomyopathy with an ejection fraction of 25%, dementia, trigeminal neuralgia, hyperlipidemia, prior alcohol abuse, hypertension, atrial fibrillation, on anticoagulation, and multiple cerebrovascular accidents with residual right hemiplegia and aphasia, presenting with anemia of chronic disease/renal disease as well as abnormal imaging of the liver concerning for metastatic disease. Anemia of chronic disease: The patient is presenting with a decreased H and H on admission with iron indices showing a low iron, high ferritin and a low TIBC, which is more consistent with anemia of chronic disease rather than an anemia of iron deficiency. Given her current medical comorbidities, this is consistent with the chronic disease diagnosis; however, she does have evidence of possible metastatic disease within the liver with an unknown primary at this time, which could further contribute to her anemia. Furthermore, she is also on anticoagulation for her atrial fibrillation, which could then further worsen or exacerbate any sort of bleeding within the body. Recommendations: 1. We would continue to trend her H and H and transfuse as necessary to maintain an H and H of 7/21. 2. Continue to monitor clinically for signs of active GI bleeding with reversal of her INR if she exhibits overt bleeding. Abnormal GI imaging of the liver: The patient is presenting with increased diarrhea over at least the last week and was accompanied by a sudden change in her mental status, prompting evaluation in the [place] ER. While she was evaluated, she had multiple imaging modalities showing the presence of a heterogeneous mass, which appears to be made up of multiple masses within the liver, and the largest of which being 9.7 cm in diameter. Given the appearance on CT imaging, this is likely to be from metastatic disease with an unknown primary source at this time. She denies ever having had either an upper endoscopy or colonoscopy, but she also denies any family history of colon polyps or colon cancer. Given the CT scan findings and the characteristics of this mass, it seems more consistent with metastatic disease with a colonic primary malignancy being one of the more likely etiologies for this finding given its propensity to spread to the liver. However, given the patient's poor functional status and evidence of probable metastatic disease, she is not a great candidate for either surgery or chemotherapy for treatment for this particular condition and then raises the question whether or not upper endoscopy or colonoscopy should be attempted to establish the diagnosis given the increased risk of complication in light of her multiple medical comorbidities including the cardiomyopathy with an ejection fraction of 25%. I discussed this extensively with both the patient and the patient's daughter about proceeding and not proceeding with EGD or colonoscopy, and the risks and benefits inherent with both. At this time, they would like to speak with the other family members prior to proceeding with endoscopic management. Recommendations: 1. If the patient is deemed to be a decent candidate for chemotherapy in light of metastatic disease, then endoscopic evaluation for establishing the diagnosis is indicated. 2. We will confer with the patient and family tomorrow about whether or not they would like to proceed with endoscopy. 3. Palliative care consultation is not unreasonable at this time given the patient's poor functional status and likely a poor chemotherapy candidate. Diarrhea: The patient is presenting with acute onset of liquid diarrhea, that has been present for at least the last 6 weeks. However, the patient was unable to quantify or qualify the nature of her diarrhea. Given that most acute onset diarrheas are infectious in nature, I would recommend infectious stool studies for further evaluation of this diarrhea, and if deemed to be infection, could be potentially easily treated with antibiotic therapy. Recommendations: 1. We will obtain a full infectious stool workup for further evaluation of her diarrhea. 2. We would continue to trend her chemistries for possible hypokalemia associated with increased diarrhea. 3. We could consider supplementation with fiber as part of a stool bulking technique. 4. We would refrain from any antibiotic therapy at least for now until stool studies have been performed. We will continue to follow. Please call with any questions. Job ID: [id number]
[2019-08-11 05:30] LABS: INR-International Normal Ratio 1.6; PTT 40.5 SEC (22.9-36.1); Prothrombin Time 18.7 SEC (12.0-14.7)
[2019-08-11 05:48] LABS: Anion Gap 9 mmol/L (10-20); BUN (Urea Nitrogen) 12 mg/dL (9.8-20.1); Calc. Creatinine Clearance 55 mL/min (70-130); Calcium 7.3 mg/dL (7.8-10.44); Carbon Dioxide 19 mmol/L (23-31); Chloride 113 mmol/L (98-107); Estimated GFR-MDRD 80; Glucose 71 mg/dL (83-110); Potassium 3.3 mmol/L (3.5-5.1); Sodium 138 mmol/L (136-145)
[2019-08-11] MEDS: Pantoprazole 40 MG VIAL IVP SCH (08:35)
[2019-08-11] MEDS: Carvedilol 25 MG TAB PO SCH (08:38)
[2019-08-11] MEDS: Sodium Chloride 0.9% 1,000 ML IV SCH (09:14)
[2019-08-11 11:21] VITALS: BP 112/53; TEMP 98.1
--- NOTE | 2019-08-12 13:57 | EKG ---
Test Reason : ER Blood Pressure : / mmHG Vent. Rate : 076 BPM Atrial Rate : 500 BPM P-R Int : 000 ms QRS Dur : 090 ms QT Int : 400 ms P-R-T Axes : 000 019 064 degrees QTc Int : 450 ms Atrial fibrillation with premature ventricular or aberrantly conducted complexes Abnormal ECG Confirmed by JOHN TRUJILLO, RADHA Workman ([id number]), science editor NINA BISHOP ([id number]) on 08/12/2019 1:56:47 PM Referred By: Confirmed By:RADHA LOPEZ MD
--- NOTE | 2019-08-12 22:17 | DIS ---
DATE OF ADMISSION: 08/10/2019 DATE OF DISCHARGE: 08/11/2019 DISCHARGE DIAGNOSES: 1. Metastatic disease of the liver of unknown primary. 2. Cardiomyopathy requiring LifeVest. 3. Iron deficiency anemia. 4. Guaiac-positive stools. 5. Chronic atrial fibrillation. 6. Hemiplegia with history of cerebrovascular accident. 7. Dementia. 8. Expressive aphasia. 9. Acute diarrheal illness. 10. Metabolic and soft encephalopathy. 11. Hypokalemia. HISTORY OF PRESENT ILLNESS: This patient is a 79-year-old female with history of an ischemic cardiomyopathy for which she was wearing a LifeVest. She also has chronic atrial fibrillation and a history of CVA resulting in right hemiplegia. The patient also had expressive aphasia. She had recently been in the hospital, where she had been diagnosed with cardiomyopathy at home. The patient was cared for by her family. She had developed an acute diarrheal type illness and was brought to the hospital. She was more lethargic and having some increased difficulty trying to express herself. She was noted in the ER. White count was 12.2, hemoglobin was 7.2, potassium was 3.3, GFR was 48. Urinalysis was largely unremarkable and her INR was 2.2. The patient had an ultrasound in the Emergency Department indicating what appeared to be multiple lesions in the liver consistent with metastatic disease. The patient did receive 1 unit of packed red cells and subsequently her hemoglobin appeared to remain stable. HOSPITAL COURSE: The patient was admitted with acute diarrheal illness, acute kidney injury in addition to acute metabolic encephalopathy and her other chronic medical conditions. She underwent a CT scan of the abdomen, which again appeared to show with contrast a number of lesions most consistent with metastatic disease. She had iron studies, which confirmed iron deficiency and stool studies confirmed heme positivity. The plan was to consider CT chest with contrast along with potential liver biopsy and colonoscopy to look for source of what appeared to be the metastatic disease. However, given the patient's significant cardiomyopathy and her general debility, it was felt that the patient would be a poor candidate for any aggressive treatment such as chemotherapy. I called the oncology team and they confirmed that with her poor functional state, she would not be a good candidate for chemotherapy. I then had conference with the patient's son and POA, again with her daughters and then ultimately again with the patient's son. The patient was already on [facility] and they were able to meet with the family as well. We essentially explained that the likelihood of finding anything that would be treatable from a neoplastic perspective would be low given her poor functional status. Therefore, it was unclear that it would be worth putting the patient through the workup even if we found a cancer as it would not likely change the course of treatment. With that, they did ultimately make the decision to pursue hospice and preferred to do that promptly. We did discuss the LifeVest situation. I explained the nature of it and the fact that it was a safety that in case the patient did ever have ventricular tachycardia that it would be there to help cardiovert her. However, it was not doing anything on a [id number] or day-by-day basis to support her. With that, they were comfortable discontinuing the LifeVest to move forward with hospice. Stool studies also returned negative as were ordered by GI consult. PHYSICAL EXAMINATION: VITAL SIGNS: The patient, on the day of discharge, temperature was 98.1, pulse 65, respirations 14, O2 saturation 98% on room air, BP was 112/53. GENERAL: She was awake, a bit more communicative. HEART: Regular rate and rhythm. She had no murmurs. LUNGS: Clear. ABDOMEN: Soft and nondistended. EXTREMITIES: No edema. DISPOSITION: The patient is discharged to home with [facility]. ACTIVITY: As tolerated. DIET: She is on no dietary restrictions. MEDICATIONS: She will continue: 1. Atorvastatin. 2. Carvedilol. 3. Omeprazole. Further treatment and plan will be per the hospice team. Dr. Molina, the patient's PCP was made aware of the patient's disposition to hospice. Job ID: [id number]
== END 2019-08-11 15:05 | disposition hospice, home (50) | DRG 682 ==
LOC: ERS 13:07 → T4-A 17:52 → 2NO 17:54 → OBSVTOIN 08-10 17:16
PROVIDERS: ADMIT Internal Medicine; ATTEND Internal Medicine
PROC: 3E02340 Introduction of Influenza Vaccine into Muscle, Percutaneous Approach (ICD-10-PCS; principal; 2019-08-10)
PROC: 30233N1 Transfusion of Nonautologous Red Blood Cells into Peripheral Vein, Percutaneous Approach (ICD-10-PCS; 2019-08-10)
DX: N17.9 Acute kidney failure, unspecified (principal); G93.41 Metabolic encephalopathy; I42.6 Alcoholic cardiomyopathy; F10.188 Alcohol abuse with other alcohol-induced disorder; C78.7 Secondary malignant neoplasm of liver and intrahepatic bile duct; I48.20 Chronic atrial fibrillation, unspecified; I69.351 Hemiplegia and hemiparesis following cerebral infarction affecting right dominant side; Z23 Encounter for immunization; G50.0 Trigeminal neuralgia; I10 Essential (primary) hypertension; F01.50 Vascular dementia, unspecified severity, without behavioral disturbance, psychotic disturbance, mood disturbance, and anxiety; E78.5 Hyperlipidemia, unspecified; E87.6 Hypokalemia; D50.9 Iron deficiency anemia, unspecified; I69.320 Aphasia following cerebral infarction; R19.5 Other fecal abnormalities; D63.8 Anemia in other chronic diseases classified elsewhere; E86.0 Dehydration; Z90.49 Acquired absence of other specified parts of digestive tract; Z79.01 Long term (current) use of anticoagulants; Z79.899 Other long term (current) drug therapy; Z88.8 Allergy status to other drugs, medicaments and biological substances
CPT/HCPCS: 36415; 36416; 36430; 51701; 74178; 76705; 80048; 80053; 81003; 81015; 82140; 82274; 82728; 83540; 83550; 83605; 83690; 85025; 85610; 85730; 86850; 86900; 86901; 87045; 87046; 87086; 87324; 87427; 87449; 93005; 96360; 96361; A4353; C9113; P9016